=== PATIENT | female | born 1945 | race Caucasian/White ===

== ENCOUNTER 2019-01-12 09:47 | Inpatient (IN) | payer MEDICARE, BC ==
[~2019-01-12] VITALS: Ht 162.6 cm; Wt 59.6 kg
[~2019-01-12 09:47] MED LIST: ADLT ASA LOW81 MG PO; ALLOPURINOL100 MG PO; AUGMENTIN500TAB PO; BENICAR40 MG PO; CALCIUM + D600 MG OR; CARTIA XT120 MG/24 PO; CLOBETASOL0.053 EX; CRESTOR10 MG PO; DEPO-MEDROL80 MG/ML IM; FISH OIL1000 MG PO; HYDROCO/APAP1 T12 OR; KEFLEX500 MG PO; LASIX 20 MG TAB20 MG PO; LOMOTIL2.5 MG PO; LUNESTA2 MG OR; MAG OXIDE400 MG PO; MELATONIN10 MG PO; MULTIVITAM10 OR; OMEPRAZOLE20 MG PO; PATADAY OP; PREVNAR 13 IM; PROBIOTIC1 TAB PO; SINGULAIR PO; ZETIA10 MG PO
[2019-01-12 11:16] LABS: HEMATOCRIT 29.4 % (37.0-47.0); HEMOGLOBIN 9.9 g/dl (12.0-16.0); IMMATURE GRANULOCYTES 0.6 % (0.0-5.0); MEAN CELL VOLUME 95.8 fL CALC (80.0-100.0); MEAN CORPUSCULAR HGB 32.2 pG CALC (26.0-32.0); MEAN CORPUSCULAR HGB CONC 33.7 g/L CALC (32.0-36.0); NEUT# 11.08 thou/uL (2.00-7.15); RED BLOOD COUNT 3.07 mill/uL (4.20-5.60); RED CELL DISTRI WIDTH 13.1 % (11.5-15.5)
[2019-01-12 11:25] LABS: ACT PARTIAL THROMBO TIME 23.7 SECONDS (20.0-32.5); ALBUMIN 4.4 g/dL (3.2-5.0); BILIRUBIN, TOTAL 0.4 mg/dL (0.0-1.4); CREATININE 1.6 mg/dL (0.5-1.0); INTERNATIONAL NORMALIZED RATIO 0.9 RATIO (0.7-1.3); POTASSIUM 4.9 mmol/l (3.5-5.1); PROTHROMBIN TIME 9.3 SECONDS (9.0-12.5); TOTAL PROTEIN 7.4 g/dL (6.3-8.2)
[2019-01-12] MEDS ORDERED: CARTIA XT300 MG PO (12:12)
[2019-01-12] MEDS ORDERED: HYDROCHLOROT12.5 M1 PO (12:20)
[2019-01-12] MEDS ORDERED: LOSARTAN POTASS50 MG PO (12:22)
[2019-01-12] MEDS ORDERED: BYSTOLIC10 MG PO (12:22)
[2019-01-12 13:59] VITALS: BP 210/71
[2019-01-12 14:31] VITALS: BP 189/91
[2019-01-12 15:23] VITALS: BP 179/66
[2019-01-12 15:51] LABS: URINE BILIRUBIN - DIPSTICK NEGATIVE (NEGATIVE); URINE BLOOD DIPSTICK TRACE-INTACT (NEGATIVE); URINE COLOR YELLOW; URINE GLUCOSE - DIPSTICK NEGATIVE (NEGATIVE); URINE KETONE NEGATIVE (NEGATIVE); URINE LEUK ESTERASE NEGATIVE (NEGATIVE); URINE NITRITE - DIPSTICK NEGATIVE (Negative); URINE PH 6.5 (4.5-8.0); URINE PROTEIN - DIPSTICK 100 mg/dL (NEG-TRACE); URINE UROBILINOGEN - DIPSTICK 0.2 E.U./dL (0.2)
[2019-01-12 15:59] LABS: URINE SQUAMOUS EPITHELIAL CELL FEW EPI/hpf (0-FEW)
[2019-01-12 16:24] LABS: MAGNESIUM 1.9 mg/dL (1.6-2.3)
[2019-01-12] MEDS ORDERED: TYLENOL PM PO (16:28)
[2019-01-12] MEDS ORDERED: IBANDRONATE SO150 MG PO (16:29)
[2019-01-12 16:50] VITALS: BP 188/72
[2019-01-12 20:43] LABS: CREATININE 1.2 mg/dL (0.5-1.0); POTASSIUM 4.5 mmol/l (3.5-5.1)
[2019-01-12 22:19] VITALS: BP 197/72
[2019-01-12 23:45] VITALS: BP 159/77
[2019-01-13] VITALS (7 sets, daily range): BP systolic 148–183; BP diastolic 60–77
[2019-01-13 05:54] LABS: HEMATOCRIT 28.1 % (37.0-47.0); HEMOGLOBIN 9.3 g/dl (12.0-16.0); IMMATURE GRANULOCYTES 0.5 % (0.0-5.0); MEAN CELL VOLUME 98.9 fL CALC (80.0-100.0); MEAN CORPUSCULAR HGB 32.7 pG CALC (26.0-32.0); MEAN CORPUSCULAR HGB CONC 33.1 g/L CALC (32.0-36.0); NEUT# 6.49 thou/uL (2.00-7.15); RED BLOOD COUNT 2.84 mill/uL (4.20-5.60); RED CELL DISTRI WIDTH 13.4 % (11.5-15.5)
[2019-01-13 06:17] LABS: CREATININE 1.2 mg/dL (0.5-1.0); POTASSIUM 4.9 mmol/l (3.5-5.1)
[2019-01-14 00:10] VITALS: BP 145/68
[2019-01-14 04:40] VITALS: BP 142/74
[2019-01-14 05:52] LABS: MEAN CELL VOLUME 99.2 fL CALC (80.0-100.0); MEAN CORPUSCULAR HGB 33.1 pG CALC (26.0-32.0); MEAN CORPUSCULAR HGB CONC 33.3 g/L CALC (32.0-36.0); RED BLOOD COUNT 2.42 mill/uL (4.20-5.60); RED CELL DISTRI WIDTH 13.8 % (11.5-15.5)
[2019-01-14 06:19] LABS: BILIRUBIN, TOTAL 0.3 mg/dL (0.0-1.4); CREATININE 1.4 mg/dL (0.5-1.0); POTASSIUM 4.3 mmol/l (3.5-5.1)
[2019-01-14 06:26] LABS: ALBUMIN 2.9 g/dL (3.2-5.0); TOTAL PROTEIN 5.4 g/dL (6.3-8.2)
[2019-01-14 07:44] VITALS: BP 161/60
[2019-01-14 11:15] VITALS: BP 171/84
[2019-01-14 12:20] VITALS: BP 156/61
[2019-01-14 15:56] VITALS: BP 148/75
[2019-01-14] MEDS ORDERED: B121000 MCG PO (16:32)
[2019-01-14] MEDS ORDERED: FOLIC ACID1 M1 PO (16:32)
== END 2019-01-14 17:43 | disposition home health service (06) | DRG 641 ==
LOC: ED 09:47 → ED-I 11:30 → ED 12:00 → MS2 12:01
PROVIDERS: Nurse Practitioner Family; ADMIT Internal Medicine; ATTEND Internal Medicine
DX: E87.1 Hypo-osmolality and hyponatremia (principal); S42.292A Other displaced fracture of upper end of left humerus, initial encounter for closed fracture; N18.4 Chronic kidney disease, stage 4 (severe); W01.198A Fall on same level from slipping, tripping and stumbling with subsequent striking against other object, initial encounter; Y92.008 Other place in unspecified non-institutional (private) residence as the place of occurrence of the external cause; I12.9 Hypertensive chronic kidney disease with stage 1 through stage 4 chronic kidney disease, or unspecified chronic kidney disease; D63.1 Anemia in chronic kidney disease; G62.1 Alcoholic polyneuropathy; E78.5 Hyperlipidemia, unspecified; I16.0 Hypertensive urgency; S09.90XA Unspecified injury of head, initial encounter

== ENCOUNTER 2019-05-18 | Day surgery (SDC) | payer MEDICARE, BC ==
[~2019-05-18] MED LIST changes: +ALOSETRON PO; +APRESOLINE25 MG/TAB PO; +B121000 MCG PO; +BONIVA150 M1 PO; +BYSTOLIC10 MG PO; +CARTIA XT300 MG PO; +FOLIC ACID1 M1 PO; +FOLIC ACID1 MG PO; +HYDROCHLOROT12.5 M1 PO; +IBANDRONATE SO150 MG PO; +LOSARTAN POTASS50 MG PO; +MAGNESIUM OXID400 M3; +TYLENOL PM PO
[2019-05-18] MEDS ORDERED: MELATONI1 XX (08:28)
[2019-05-18] MEDS ORDERED: TYLENOL PM PO (08:29)
[2019-05-18] MEDS ORDERED: GINGER ROOT (08:30)
[2019-05-18 09:25] LABS: HEMATOCRIT 33.3 % (37.0-47.0); HEMOGLOBIN 10.6 g/dl (12.0-16.0); IMMATURE GRANULOCYTES 0.5 % (0.0-5.0); MEAN CELL VOLUME 98.8 fL CALC (80.0-100.0); MEAN CORPUSCULAR HGB 31.5 pG CALC (26.0-32.0); MEAN CORPUSCULAR HGB CONC 31.8 g/L CALC (32.0-36.0); NEUT# 4.46 thou/uL (2.00-7.15); RED BLOOD COUNT 3.37 mill/uL (4.20-5.60); RED CELL DISTRI WIDTH 14.5 % (11.5-15.5)
[2019-05-18 09:46] LABS: ALBUMIN 3.1 g/dL (3.2-5.0); BILIRUBIN, TOTAL 0.2 mg/dL (0.0-1.4); CREATININE 1.6 mg/dL (0.5-1.0); POTASSIUM 4.2 mmol/l (3.5-5.1); TOTAL PROTEIN 5.6 g/dL (6.3-8.2)
[2019-05-18] MEDS ORDERED: PROTONIX20 M1 PO (10:52)
--- NOTE | 2019-05-30 13:35 | NUR ---
PER DR SHEA THE PATHOLOGY REPORT WAS BENIGN. I ADVISED PATIENT THE SAME. I EXPAINED TO HER TO STAY ON HER MEDICATION FOR 3 MONTHS AND THEN STOP THEM TO SEE HOW SHE FEELS. ALSO ADVISED TO REPEAT COLONOSCOPY IN 5 YEARS. SENT COPY OF NOTES TO DR SNOW.
== END 2019-05-18 11:30 | disposition home or self-care (01) ==
PROVIDERS: Surgery
PROC: 0DBL8ZX Excision of Transverse Colon, Via Natural or Artificial Opening Endoscopic, Diagnostic (ICD-10-PCS; principal; 2019-05-18)
PROC: 0DB98ZX Excision of Duodenum, Via Natural or Artificial Opening Endoscopic, Diagnostic (ICD-10-PCS; 2019-05-18)
DX: D12.3 Benign neoplasm of transverse colon (principal); K57.30 Diverticulosis of large intestine without perforation or abscess without bleeding; K26.9 Duodenal ulcer, unspecified as acute or chronic, without hemorrhage or perforation; K44.9 Diaphragmatic hernia without obstruction or gangrene; I12.9 Hypertensive chronic kidney disease with stage 1 through stage 4 chronic kidney disease, or unspecified chronic kidney disease; N18.4 Chronic kidney disease, stage 4 (severe); Z86.010 Personal history of colon polyps

== ENCOUNTER 2020-09-16 07:45 | Day surgery (SDC) | payer MEDICARE, BC ==
[~2020-09-16] VITALS: Ht 162.6 cm; Wt 56.2 kg
[~2020-09-16 07:45] MED LIST changes: +D32000 UNI1 PO; +GINGER ROOT; -MAGNESIUM OXID400 M3; +MAGNESIUM OXID400 M3 PO; +MELATONI1 PO; +PROTONIX20 M1 PO; +PROTONIX20 MG PO; +[UNRECOGNIZED DRUG - OTHER] PO
[2020-09-16] MEDS ORDERED: PERCOCET 5/325M1 TAB PO (10:02)
[2020-09-16 10:49] VITALS: BP 185/84
[2020-10-27] MEDS ORDERED: DIPHENOXYLATE/A1 TA1 PO (23:45)
== END 2020-09-16 11:10 | disposition home or self-care (01) ==
LOC: ORM 07:45
PROVIDERS: ATTEND Surgery
PROC: 06BY3ZC Excision of Hemorrhoidal Plexus, Percutaneous Approach (ICD-10-PCS; principal; 2020-09-16)
PROC: 0DBQXZX Excision of Anus, External Approach, Diagnostic (ICD-10-PCS; 2020-09-16)
DX: K64.8 Other hemorrhoids (principal); C21.0 Malignant neoplasm of anus, unspecified; I12.9 Hypertensive chronic kidney disease with stage 1 through stage 4 chronic kidney disease, or unspecified chronic kidney disease; N18.4 Chronic kidney disease, stage 4 (severe)
CPT/HCPCS: C9290

== ENCOUNTER 2020-10-01 06:18 | Day surgery (SDC) | payer MEDICARE, BC ==
[~2020-10-01 06:18] MED LIST changes: +PERCOCET 5/325M1 TAB PO
[2020-10-01] MEDS ORDERED: PERCOCET 5/325M1 TAB PO (08:17)
[2020-10-01 09:02] VITALS: BP 174/78
[2020-10-27] MEDS ORDERED: DIPHENOXYLATE/A1 TA1 PO (23:45)
== END 2020-10-01 09:23 | disposition home or self-care (01) ==
LOC: ORM 06:18
PROVIDERS: ATTEND Surgery
PROC: 0JH63WZ Insertion of Totally Implantable Vascular Access Device into Chest Subcutaneous Tissue and Fascia, Percutaneous Approach (ICD-10-PCS; principal; 2020-10-01)
PROC: 02HV33Z Insertion of Infusion Device into Superior Vena Cava, Percutaneous Approach (ICD-10-PCS; 2020-10-01)
PROC: B518ZZA Fluoroscopy of Superior Vena Cava, Guidance (ICD-10-PCS; 2020-10-01)
DX: C21.0 Malignant neoplasm of anus, unspecified (principal); I10 Essential (primary) hypertension

== ENCOUNTER 2020-10-28 11:31 | Inpatient (IN) | payer MEDICARE, BC ==
[~2020-10-28] VITALS: Ht 162.6 cm; Wt 60.0 kg
[~2020-10-28 11:31] MED LIST changes: +DIPHENOXYLATE/A1 TA1 PO
--- NOTE | 2020-10-28 11:58 | NUR ---
PT AMBULATED TO RM 8 WITH STEADY GAIT FOR B/S TRIAGE. FAMILY AT B/S.
--- NOTE | 2020-10-28 13:55 | NUR ---
SON REMAINE BEDSIDE WITH HIS MOTHER, BOTH DENIE ANY NEEDS CURRENTLY
[2020-10-28 14:03] LABS: ALBUMIN 3.4 g/dL (3.2-5.0); CREATININE 2.2 mg/dL (0.5-1.0); TOTAL PROTEIN 6.1 g/dL (6.3-8.2)
[2020-10-28 14:04] LABS: BILIRUBIN, TOTAL 0.3 mg/dL (0.0-1.4)
[2020-10-28 14:11] LABS: URINE BILIRUBIN - DIPSTICK NEGATIVE (NEGATIVE); URINE BLOOD DIPSTICK TRACE-INTACT (NEGATIVE); URINE COLOR YELLOW; URINE GLUCOSE - DIPSTICK NEGATIVE (NEGATIVE); URINE KETONE NEGATIVE (NEGATIVE); URINE LEUK ESTERASE NEGATIVE (NEGATIVE); URINE PROTEIN - DIPSTICK 100 mg/dL (NEG-TRACE); URINE UROBILINOGEN - DIPSTICK 0.2 E.U./dL (0.2)
[2020-10-28 14:13] LABS: URINE EPITHELIAL CELLS FEW EPI/hpf (0-FEW); URINE MUCUS FEW hpf (NONE-FEW); URINE NITRITE - DIPSTICK NEGATIVE (Negative)
[2020-10-28 14:26] LABS: HEMATOCRIT 21.5 % (37.0-47.0); MEAN CELL VOLUME 100.5 fL CALC (80.0-100.0); MEAN CORPUSCULAR HGB 32.7 pG CALC (26.0-32.0); MEAN CORPUSCULAR HGB CONC 32.6 g/dL CAL (32.0-36.0); NEUT# 0.16 thou/uL (2.00-7.15); RED BLOOD COUNT 2.14 mill/uL (4.20-5.60); RED CELL DISTRI WIDTH 20.2 % (11.5-15.5)
--- NOTE | 2020-10-28 17:03 | NUR ---
REPORT TO OSCAR SPANN.
--- NOTE | 2020-10-28 17:11 | NUR ---
REPORT REC FROM Cristo AYALA RN
--- NOTE | 2020-10-28 17:26 | NUR ---
PT ARRIVED VIA WC ACCOMPANIED BY Cristo AYALA RN. PT A&O X4. NO DISTRESS NOTED. CLEAR BREATH SOUNDS UPON AUSCULTATION. ACTIVE BOWEL SOUNDS X4 QUADRANTS. 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 LAST REPORTED RADIATION 10/27/20. RUCHI CHEST PORT ACCESSED 10/28/20 BY ED STAFF, VANCOMYCIN CURRENTLY INFUSING. PT EDUCATED ON THE NEED FOR BLOOD TRANSUFSION, PT DENIES HAVING A PAST BLOOD TRANSFUSION. CONSENT TO BE OBTAINED. FRANCHISE SALES DIRECTOR IN PLACE, INITIAL READING SR 91 PER G [facility]. PT REPORTS THRUSH, PRESCRIBED THRUSH MEDICATION BROUGHT FROM HOME, APPROVAL FOR ITS USE DURING ADMISSION OBTAINED FROM Yves LIVINGSTON APRN. PORT PROTOCL FAXED TO PHARMACY. ORDER OBTAINED FOR 500 CC NS @ [facility] FOR ADMINISTRATION FOR BLOOD AND OR BLOOD PRODUCTS. ORDERS FAXED TO PHARMACY. REVERSE ISOLATION PRECAUTIONS IN PLACE FOR NEUTROPENIA, PT EDUCATED. ASSESSMENT COMPLETED. DISCUSSED POC. CALL LIGHT WITHIN REACH.
[2020-10-28 17:30] VITALS: BP 156/70
--- NOTE | 2020-10-28 17:30 | NUR ---
Admission Note Report Given to: OSCAR SPANN Transported by: Wheelchair Stretcher Transported with: X Nurse Transporter X Patent IV O2 X Hydroelectric Station Operator Location: ICU X MS2 PATIENT TO ROOM 274 VIA WHEELCHAIR IN STABLE CONDITION.
[2020-10-28] MEDS ORDERED: BYSTOLIC5 MG PO (17:37)
[2020-10-28] MEDS ORDERED: HYDRALAZINE10 MG PO (17:39)
[2020-10-28] MEDS ORDERED: CVS MELATONIN PO (17:41)
[2020-10-28 19:00] VITALS: BP 167/79
--- NOTE | 2020-10-28 19:37 | NUR ---
INFORMED CONSENT OBTAINED FOR THE ADMINISTRATION OF BLOOD AND OR BLOOD PRODUCTS.
[2020-10-28 21:00] VITALS: BP 176/73
[2020-10-28 21:40] VITALS: BP 158/75
--- NOTE | 2020-10-28 21:45 | NUR ---
PATIENT SPIKED A FEVER 101.2 JUST PRIOR TO GIVING BLOOD. DR. PHAN NOTIFIED. TRANSFUSION HELD. WILL ADDRESS IN A.M. PATIENT IS IN NO ACUTE DISTRESS. IVF REINITIATED. RESTING QUIETLY IN BED. NO COMPLAINTS.
[2020-10-29] VITALS (10 sets, daily range): BP systolic 139–181; BP diastolic 62–80
--- NOTE | 2020-10-29 01:15 | NUR ---
PATIENT RESTING IN BED. NO COMPLAINTS VERBALIZED AT THIS TIME. CONTINUES WITH DIARRHEA. PATIENT OWN MEDICATIONS IN MED ROOM AND MED REC UPDATED WITH BOWEL MED INFORMATION.
[2020-10-29 06:27] LABS: MAGNESIUM 1.9 mg/dL (1.6-2.3); POTASSIUM 4.4 mmol/l (3.5-5.1)
[2020-10-29 06:59] LABS: MEAN CORPUSCULAR HGB 32.7 pG CALC (26.0-32.0); MEAN CORPUSCULAR HGB CONC 32.3 g/dL CAL (32.0-36.0); RED BLOOD COUNT 1.96 mill/uL (4.20-5.60); RED CELL DISTRI WIDTH 20.3 % (11.5-15.5)
[2020-10-29 07:00] LABS: HEMATOCRIT 19.8 % (37.0-47.0); HEMOGLOBIN 6.4 g/dl (12.0-16.0)
--- NOTE | 2020-10-29 07:00 | NUR ---
PT REPORT RECEIVED FROM NIGHT NURSEKAILEY.
--- NOTE | 2020-10-29 07:16 | NUR ---
RECEIVED MULTIPLE CRITICAL LABS FROM .. DR. PHAN NOTIFIED. NO NEW ORDERS AT THIS TIME.
--- NOTE | 2020-10-29 08:00 | NUR ---
PT WAS FOUND RESTING IN BED IN SEMI-[place]'S POSITION;PT IS A&OX3;VS AND ASSESSMENT WERE COMPLETED;SEE SHIFT ASSESSMENT FOR DETAILS;TELE IS IN PLACE;PORT IN LEFT CHEST IS RUNNING NS@100ML/HR;PORT IS PATENT AND APPEARS FREE OF COMPLICATIONS AT THIS TIME;SAFETY PRECAUTIONS IN PLACE;CALL LIGHT WITHIN REACH;PT ENCOURAGED TO CALL WITH ANY NEEDS OR CONCERNS;WILL CONTINUE TO MONITOR.
--- NOTE | 2020-10-29 08:00 | NUR ---
PT WAS FOUND RESTING IN BED IN SEMI-[place]'S POSITION;PT IS A&OX3;VS AND ASSESSMENT WERE COMPLETED;PT IS REPORTING NO PAIN AT THIS TIME;HEART SOUNDS ARE REGULAR IN RATE AND RHYTHM;TELE IN PLACE;LUNG SOUNDS ARE CLEAR;RESPIRATIONS ARE EVEN AND UNLABORED ON RA;ABDOMEN IS SOFT WITH ACTIVE BS NOTED IN ALL QUADRANTS;SKIN INTACT;TRACE EDEMA NOTED IN LOWER LEGS BILATERALLY;LYNETTE CARRERA ON PT;PT HAS A PORT IN THE LEFT CHEST INFUSING NS@100ML/HR;SITE IS PATENT AND APPEARS FREE OF COMPLICATIONS AT THIS TIME;SAFETY PRECAUTIONS IN PLACE;PT IS CURRENTLY ON NEUTROPENIC PRECAUTIONS;CALL LIGHT WITHIN REACH;PT ENCOURAGED TO CALL WITH ANY NEEDS OR CONCERNS;BED IN LOWEST POSITION;WILL CONTINUE TO MONITOR
[2020-10-29] MEDS ORDERED: COMPAZINE10 MG PO (10:27)
[2020-10-29] MEDS ORDERED: ONDANSETRON ODT8 MG PO (10:28)
[2020-10-29] MEDS ORDERED: PRAMOXINE RE (10:33)
--- NOTE | 2020-10-29 12:00 | NUR ---
PT WAS FOUND RESTING IN BED EATING LUNCH;TELE IS IN PLACE;IV INFUSING WITHOUT DIFFICULTIES;SAFETY PRECAUTIONS IN PLACE;CALL LIGHT WITHIN REACH;WILL CONTINUE TO MONITOR.
--- NOTE | 2020-10-29 16:00 | NUR ---
PT WAS FOUND RESTING IN BED;TRANSFUSION OF PACKED RED BLOOD CELLS COMPLETED;PORT IS INFUSING ABX AND NS@100 ML/HR;SITE IS PATENT AND APPEARS FREE OF COMPLICATIONS;TELE IS IN PLACE;MEDICATIONS ARE BEING ADMINISTERED LATER DUE TO TRANSFUSION;SAFETY PRECAUTIONS IN PLACE;CALL LIGHT WITHIN REACH;WILL CONTINUE TO MONITOR.
--- NOTE | 2020-10-29 18:30 | NUR ---
CALL WAS MADE TO DIETARY FOR A MECHANICAL SOFT DIET TRAY TO BE SENT;ORDER PUT IN FOR PT
[2020-10-30] VITALS (14 sets, daily range): BP systolic 102–180; BP diastolic 53–84
--- NOTE | 2020-10-30 03:00 | NUR ---
PATIENT NEEDS PLATELETTS TRANSFUSED. VITALS TAKEN. FEVER 100.7, TYLENOL GIVEN WILL REASSESS FOR FEVER
--- NOTE | 2020-10-30 04:28 | NUR ---
PATIENT FEVER IS GOING DOWN. 99.5
[2020-10-30 06:25] LABS: CREATININE 1.7 mg/dL (0.5-1.0); MAGNESIUM 1.7 mg/dL (1.6-2.3); POTASSIUM 4.7 mmol/l (3.5-5.1)
[2020-10-30 06:57] LABS: HEMATOCRIT 20.8 % (37.0-47.0); MEAN CELL VOLUME 97.7 fL CALC (80.0-100.0); MEAN CORPUSCULAR HGB 32.9 pG CALC (26.0-32.0); MEAN CORPUSCULAR HGB CONC 33.7 g/dL CAL (32.0-36.0); RED BLOOD COUNT 2.13 mill/uL (4.20-5.60); RED CELL DISTRI WIDTH 19.9 % (11.5-15.5)
--- NOTE | 2020-10-30 07:00 | NUR ---
PT REPORT RECEIVED FROM NIGHT NURSEJERROD
--- NOTE | 2020-10-30 08:00 | NUR ---
PT WAS FOUND RESTING IN BED;PT IS A&OX3;VS AND ASSESSMENT WERE COMPLETED;HEART SOUNDS ARE REGULAR IN RATE AND RHYTHM;TELE IS IN PLACE;LUNG SOUNDS ARE CLEAR;RESPIRATIONS ARE EVEN AND UNLABORED ON RA;ABDOMEN IS SOFT WITH ACTIVE BOWEL SOUNDS IN ALL QUADRANTS;PT HAS TRACE EDEMA IN BOTH LL BILATERALLY;PT HAS A PORT THAT IS INFUSING NS@100ML/HR WITHOUT ISSUES AND PORT APPEARS FREE OF COMPLICATIONS AT THIS TIME;SAFETY PRECAUTIONS IN PLACE;CALL LIGHT WITHIN REACH;PT ENCOURAGED TO CALL WITH ANY NEEDS OR CONCERNS;BED IN LOWEST POSITION;WILL CONTINUE TO MONITOR.
--- NOTE | 2020-10-30 10:00 | NUR ---
PT WAS STARTED ON O2 THERAPY VIA NC@2L PER
--- NOTE | 2020-10-30 12:00 | NUR ---
PT WAS FOUND RESTING IN BED;PT IS STILL REPORTING MOUTH PAIN;I GAVE HER ICE CHIPS AND AN ICE PACK THAT SHE REQUESTED;WILL INFORM PHYSICIAN
--- NOTE | 2020-10-30 14:20 | NUR ---
CALL WAS MADE TO SANDY/SAWMILL WORKER;EXPRESSED PT DESIRE FOR SMOOTHIE;SANDY STATED THAT SHE WOULD SWITCH THE DIET TO FULL LIQUID AND SEE IF SHE COULD SEND UP A SMOOTHIE OR MILKSHAKE;ALSO PT REQUESTS FOR CREAM SOUP OR BROTH AND/OR HOT/COLD
--- NOTE | 2020-10-30 16:45 | NUR ---
PT IS RESTING IN BED IN SEMI-FOWLERS POSITION WHILE PACKED RBC ARE TRANSFUSING;VS ARE MONITORED AND PORT IN LEFT CHEST IS PATENT AND APPEARS FREE OF COMPLICATIONS AT THIS TIME;TELE IS IN PLACE;O2@2L VIA NC IS IN PLACE AND RESPIRATIONS ARE EVEN AND UNLABORED;SAFETY PRECAUTIONS IN PLACE;CALL LIGHT WITHIN REACH;WILL CONTINUE TO MONITOR.
--- NOTE | 2020-10-30 19:00 | NUR ---
PT ANTIBIOTICS WERE LATE TODAY DUE TO PROBLEMS WITH TRANSFUSION SCHEDULING;WILL BE GIVEN AT FIRST AVAILABLE TIME
--- NOTE | 2020-10-30 20:00 | NUR ---
PHYSICAL ASSESMENT COMPLETE. PT CURRENTLY DENIES PAIN OR DISCOMFORT. SCHEDULED MEDICATIONS AND PRN MEDICATION ADMINISTERED, SEE E-MAR. PT DENIES ANY NEEDS AT THIS TIME. PLAN OF CARE REVIEWED, PT DENIES QUESTIONS, VERBALIZES UNDERSTANDING. ITEMS WITHIN REACH, BED LOCKED IN LOW POSITION W/ BEDRAILS UP X2. CALL VAZQUEZ WITHIN REACH, AGREES TO CALL PRN.
[2020-10-31] VITALS: BP 148/63
--- NOTE | 2020-10-31 | NUR ---
PT LAYING IN BED WITH EYES CLOSED, APPEARS TO BE SLEEPING, APPEARS COMFORTABLE AND IN NO DISTRESS. RESPIRATIONS REGULAR AND UNLABORED. ITEMS REMAIN WITHIN REACH, CALL VAZQUEZ REMAINS WITHIN REACH. BED REMAINS LOCKED AND IN LOW POSITION WITH BEDRAILS UP X2. WILL CONTINUE TO MONITOR.
[2020-10-31 04:00] VITALS: BP 161/70
--- NOTE | 2020-10-31 05:48 | NUR ---
PT FOUND AWAKE FOUND WATCHING TV. C/O OF MOUTH PAIN. GIVEN ICE CHIPS AND COLD COMPRESS. WILL CONTINUE TO MONITOR.
[2020-10-31 06:08] LABS: CREATININE 1.8 mg/dL (0.5-1.0); MAGNESIUM 1.5 mg/dL (1.6-2.3); POTASSIUM 3.9 mmol/l (3.5-5.1)
[2020-10-31 06:11] LABS: HEMATOCRIT 27.5 % (37.0-47.0); MEAN CELL VOLUME 95.5 fL CALC (80.0-100.0); MEAN CORPUSCULAR HGB 31.3 pG CALC (26.0-32.0); MEAN CORPUSCULAR HGB CONC 32.7 g/dL CAL (32.0-36.0); RED BLOOD COUNT 2.88 mill/uL (4.20-5.60); RED CELL DISTRI WIDTH 19.7 % (11.5-15.5)
--- NOTE | 2020-10-31 09:18 | NUR ---
PT SITTING IN BED ATTEMPTING TO EAT BREAKFAST. A&O X4. DENIES ANY PAIN AT THIS TIME. O2 VIA NC @2L IN PLACE, CURRENTLY SUSTAINING 94-97%. CLEAR BREATH SOUNDS UPON AUSCULTATION. ACTIVE BOWEL SOUNDS X4 QUADRANTS. RU CHEST PORT HEALTHY AND PATENT IVF INFUSING PER ORDER. THRUSH TO MOUTH & TONGUE, PT REPORTS DISCOMFORT. REDNESS NOTED TO PERIRECTAL & PERNIEAL AREA DUE TO RADIATION. REVERSE ISOLATION PRECAUTIONS IN PLACE DUE TO NEUTROPENIA. NO OTHER NEEDS AT THIS TIME, REMAINS AFEBRILE. ASSESSMENT COMPLETED. DISCUSSED POC. CALL LIGHT WITHIN REACH.
--- NOTE | 2020-10-31 09:51 | NUR ---
dr graff and leslie brown aprn at bedside discussing poc
[2020-10-31 09:58] LABS: MANUAL DIFFERENTIAL YES
[2020-10-31 10:17] LABS: ANISOCYTOSIS MODERATE; BAND 10 % (0-8)
[2020-10-31 10:47] VITALS: BP 154/70
--- NOTE | 2020-10-31 12:15 | NUR ---
PT SLEEPING IN BED. NO DISTRESS NOTED. CALL LIGHT WITHIN REACH.
--- NOTE | 2020-10-31 15:00 | NUR ---
PT SITTING ON THE SIDE OF THE BED. NO DISTRESS NOTED. CALL LIGHT WITHIN REACH.
[2020-10-31 15:22] VITALS: BP 152/70
[2020-10-31 19:53] VITALS: BP 160/78
--- NOTE | 2020-10-31 20:33 | NUR ---
PHYSICAL ASSESMENT COMPLETE. PT C/O OF PAIN AND DISCOMFORT IN HER MOUTH DO TO THRUSH. SCHEDULED MEDICATIONS AND PRN MEDICATION ADMINISTERED, SEE E-MAR. PT DENIES ANY NEEDS AT THIS TIME. PLAN OF CARE REVIEWED, PT DENIES QUESTIONS, VERBALIZES UNDERSTANDING. ITEMS WITHIN REACH, BED LOCKED IN LOW POSITION W/ BEDRAILS UP X2. CALL VAZQUEZ WITHIN REACH, AGREES TO CALL PRN.
--- NOTE | 2020-10-31 22:31 | NUR ---
PTS BELONGS BAG TOPPLED TO THE FLOOR BREAK A LIQUID MEDICINE BOTTLE CONTAINING LIDO/MYKIN/PUB A. BOTTLE QUANITY IS 840. FILLED AT [facility] [place], 10-30-20
[2020-11-01] VITALS: BP 168/86
--- NOTE | 2020-11-01 03:46 | NUR ---
PT RESTING IN BED, NO SIGNS OF DISTRESS NOTED, RESP EVEN AND UNLABORED. PT VOICES NO NEEDS OR COMPLAINTS AT THIS TIME. CALL LIGHT IN REACH, CONTINUE TO MONITOR.
[2020-11-01 04:54] VITALS: BP 159/75
[2020-11-01 05:33] LABS: BILIRUBIN, TOTAL 0.2 mg/dL (0.0-1.4); CREATININE 1.7 mg/dL (0.5-1.0); TOTAL PROTEIN 5.1 g/dL (6.3-8.2)
[2020-11-01 05:41] LABS: HEMATOCRIT 26.3 % (37.0-47.0); HEMOGLOBIN 8.8 g/dl (12.0-16.0); MEAN CELL VOLUME 96.3 fL CALC (80.0-100.0); MEAN CORPUSCULAR HGB 32.2 pG CALC (26.0-32.0); MEAN CORPUSCULAR HGB CONC 33.5 g/dL CAL (32.0-36.0); RED BLOOD COUNT 2.73 mill/uL (4.20-5.60); RED CELL DISTRI WIDTH 19.8 % (11.5-15.5)
[2020-11-01 05:42] LABS: ALBUMIN 2.5 g/dL (3.2-5.0); IMMATURE GRANULOCYTES 2.8 % (0.0-5.0); NEUT# 0.05 thou/uL (2.00-7.15)
[2020-11-01 07:30] VITALS: BP 159/75
--- NOTE | 2020-11-01 07:30 | NUR ---
PATIENT LAYING IN BED AT THIS TIME. PATIENT STATES HER STATED PAIN IS "2" PATIENT HAS BEEN PREVIOUSLY MEDICATED. MASSOTHERAPIST DONE AT THIS TIME. YULIANA HAS LEFT CHEST PORT ACCESSED AT THIS TIME WITH .9NS AT 50MLS AND HOUR. PATIENT PRESENTS WITH THRUSH IN MOUTH. SIDERAILS ARE UP CALL LIGHT WITHIN REACH. O2 ON AT 2 LITERS.
[2020-11-01 10:30] VITALS: BP 149/75
--- NOTE | 2020-11-01 12:20 | NUR ---
PATIENT UP TO BATHROOM AND HAD BM X 2 SEE INTERVENTIONS. PATIENT STATED PAIN IS A 2 CURRENTLY FOR GENERALIZED PAIN. SIDERAILS ARE UP CALL LIGHT IS WITHIN REACH AT THIS TIME.
--- NOTE | 2020-11-01 13:30 | NUR ---
PATIENT GIVEN 2MG OF MORPHINE IV FOR PAIN LEVEL OF 4 AND MOUTH PAIN AT THIS ITME. SIDERAILS ARE UP X 2 CALL LIGHT WITHIN REACH.
--- NOTE | 2020-11-01 14:31 | NUR ---
S: JOSÉ MIGUEL GONZALEZ is a 74 F who presents with neutropenic fever. All medications in patient's chart were reviewed. O: W 56 kg, HT 64 in, Scr 1.7 mg/dl, CrCl 25.3 ml/min Vancomycin random level 11/01 @ 1330 < 5 mcg/ml A: Blood culture pending P: Patient is on cefepime 1g q12h Vancomycin ordered for pharmacy to dose. Change vancomycin to 1g IV Q36H. Vancomycin trough is drawn before the 4th dose on 11/06 @ 0400. Vancomycin goal trough is between 15-20 mcg/ml. Pharmacy will follow and or advise on antibiotics use as needed.
[2020-11-01 15:50] VITALS: BP 142/71
--- NOTE | 2020-11-01 15:52 | NUR ---
PATIENT RESTING IN BED AT THIS TIME. STOOL SAMPLE OBTAINED AND SENT TO LAB. PICTURE TAKE OF BUTTOCK AT THIS TIME DUE TO OPEN BLISTER ON LEFT BUTTOCKS AND SEVER REDDNESS ON BUTTOCKS. MYSTATIN APPLIED AND AQUALCELL PLACED. SIDERAILS ARE UP AT THIS TIME. PATIENT STATED HER MOUTH HURT "STILL" PATIENT WAS MEDICATED WITH ORAL MED PREVIOUSLY. PORT IS ACCESS AND CONTIUOUES IV RUNNING WITH .9 NORMAL SALINE AT 50MLS/HR. WILL CONTINUE TO MONITOR.
[2020-11-01 19:00] VITALS: BP 168/77
--- NOTE | 2020-11-01 21:00 | NUR ---
RESTING IN BED AT THIS TIME WITH O2 VIA NASAL CANNULA IN PLACE. O2 SAT IS 97% ON 2LPM. AWAKE ALERT AND ORIENTEDX3. PATIENT WITH SEVERE SORENESS AND PAIN IN HER MOUTH FROM ORAL THRUSH. PATIENT PROVIDED WITH MAGIC MOUTHWASH ORDERED FOR TOPICAL TREATMENT. PATIENT WITH LEFT UPPER CHEST PORT ACCESSED WITH IVF NS PATENT AND INFUSING ATR 50CC/HR. SITE IS HEALTHY AT THIS TIME. TELE MONITOR IN PLACE LAST READING 76 1[address] AV BLOCK. PATIENT UP TO THE BSC TO VOID YELLOW URINE AND SMALL AMT OF LOOSE BROWN STOOL. PATIENT PERINEAL AREA IS RED AND IRRITATED-AREA WAS WASHED WITH SOAP AND WATER, NYSTATIN POWDER APPLIED. AQUACEL FOAM DRESSING INTACT TO BUTTOCKS AREA. MEDICATED FOR PAIN WITH MORPHINE 2MG IVP ORDERED FOR 8/10 PAIN SCALE. NEUTROPENIC AND SAFETYPRECAUTIONS IN PLACE AND REINFORCED. CALL LIGHT IN REACH. WILL CONT TO MONITOR,
[2020-11-02] VITALS (8 sets, daily range): BP systolic 134–163; BP diastolic 62–78
--- NOTE | 2020-11-02 | NUR ---
PATIENT RESTING IN BED AT THIS TIME WITH NO COMPLAINTS AT THIS TIME. POSTIONED ON HER RIGHT SIDE WITH O2 VIA NASAL CANNULA IN PLACE. EYES ARE CLOSED AND RESP ARE EVEN AND UNLABORED. IVF PATIENT AND INFUSING VIA LEFT CHEST PORT AT 50CC/HR. TELE MONITOR IN PLACE. CALL LIGHT IN REACH. WILL CONT TO MONITOR.
[2020-11-02 05:57] LABS: CREATININE 1.7 mg/dL (0.5-1.0); POTASSIUM 4.3 mmol/l (3.5-5.1)
[2020-11-02 06:10] LABS: HEMATOCRIT 24.8 % (37.0-47.0); MEAN CELL VOLUME 97.3 fL CALC (80.0-100.0); MEAN CORPUSCULAR HGB 31.4 pG CALC (26.0-32.0); MEAN CORPUSCULAR HGB CONC 32.3 g/dL CAL (32.0-36.0); RED BLOOD COUNT 2.55 mill/uL (4.20-5.60); RED CELL DISTRI WIDTH 19.8 % (11.5-15.5)
[2020-11-02 06:11] LABS: NEUT# 0.21 thou/uL (2.00-7.15)
--- NOTE | 2020-11-02 06:45 | NUR ---
REPORT RECEIVED FROM FAIZAN MOORE. CARE ASSUMED.
--- NOTE | 2020-11-02 08:00 | NUR ---
PATIENT RESTING IN BED AWAKE. PATIENT IS ALERT AND ORIENTED X3. SHIFT ASSESSMENT COMPLETED AT THIS TIME. IV PATENT X1. CALL LIGHT IN REACH. WILL CONTINUE TO MONITOR.
--- NOTE | 2020-11-02 11:30 | NUR ---
PATIENT RESTING IN BED AT THIS TIME. AQUACEL REMOVED. BUTTOCKS EXCORIATED WITH OPEN AREAS. DR REAVES NOTIFIED. ORDERS RECEIVED TO LEAVE OPEN TO AIR.
--- NOTE | 2020-11-02 12:40 | NUR ---
DR REAVES AT BEDSIDE AT THIS TIME. PLAN OF CARE DISCUSSED.
--- NOTE | 2020-11-02 16:00 | NUR ---
PATIENT RESTING IN BED AT THIS TIME. RESP ARE EVEN AND UNLABORED. NO DISTRESS NOTED. CALL LIGHT IN REACH. WILL CONTINUE TO MONITOR.
--- NOTE | 2020-11-02 20:30 | NUR ---
PATIENT RESTING IN BED AT THIS TIME WITH O2 VIA NASAL CANNULA IN PLACE AT 2LPM O2 SAT IS 98%. PATIENT AWAKE ALERT AND ORIENTEDX3. COLOR IS PALE. SKIN IS WARM AND DRY. TELE MONITOR IN PLACE WITH LAST READING SR-70'S 1ST AVB. LEFT CHEST PORT IS ACCESSED AND SITE IS HEALTHY AT THIS TIME. PATIENT UP TO THE BSC-VOIDING YELLOW URINE. PATIENT IS HAVING SOME RECTAL BLEEDING WHEN SHE WIPES. PATIENT WITH HX OF ANAL CANCER AND CURRENTLY UNDERGOING CHEMO AND RADIACTION THERAPY. PATIENT ON NEUTROPENIC PRECAUTIONS FOR WBC-0.5 THIS MORNING. PATIENT WITH SEVERE THRUSH AND USING MAGIC MOUTHWASH AND CHLORSEPTIC FOR THAT. PATIENT ASSISTED WITH PERICARE-BARRIER CREAM APPLIED TO REDDENED BUTTOCKS. NYSTATIN POWDER APPLIED TO REDDENED PERINEAL AREA. PATIENT MEDICATED FOR PAIN -MOUTH AND PERINEAL AREA-8/10 ON PAIN SCALE WITH MORPHINE 2MG IVP. MEDICATED FOR DIARRHEA WITH LOMOTIL. SAFETY PRECAUTIONS REINFORCED. CALL LIGHT IN REACH. WILL CONT TO MONITOR.
[2020-11-03] VITALS: BP 143/72
--- NOTE | 2020-11-03 00:47 | NUR ---
PATIENT RESTING IN BED AT THIS TIME WITH O2 VIA NASAL CANNULA IN PLACE. NO COMPLAINTS AT THIS TIME. CALL LIGHT IN REACH. WILL CONT TO MONITOR.
--- NOTE | 2020-11-03 03:24 | NUR ---
PATIENT RESTING IN BED WITH O2 VIA NASAL CANNULA IN PLACE. PATIENT WITH C/O ORAL AND RECTAL PAIN-8/10 ON PAIN SCALE. MEDICATED WITH MORPHINE 2MG IVP ORDERED FOR PAIN. LAB WORK WAS DRAWN FROM LEFT UPPER CHEST PORT WITHOUT ANY DIFFICULTY-GOOD BLOOD RETURN-FLUSHED WITH NS AND HEP KARTHIKEYAN PER PROTCOL. PATIENT WAS UP TO THE BSC TO VOID AND HAD SMALL LOOSE BROWN STOOL. SAFETY PRECAUTIONS REINFORCED. CALL LIGHT IN REACH. WILL CONT TO MONITOR.
[2020-11-03 03:54] LABS: HEMATOCRIT 25.8 % (37.0-47.0); HEMOGLOBIN 8.3 g/dl (12.0-16.0); IMMATURE GRANULOCYTES 1.7 % (0.0-5.0); MEAN CELL VOLUME 98.1 fL CALC (80.0-100.0); MEAN CORPUSCULAR HGB 31.6 pG CALC (26.0-32.0); MEAN CORPUSCULAR HGB CONC 32.2 g/dL CAL (32.0-36.0); NEUT# 0.22 thou/uL (2.00-7.15); RED BLOOD COUNT 2.63 mill/uL (4.20-5.60); RED CELL DISTRI WIDTH 19.6 % (11.5-15.5)
[2020-11-03 04:17] LABS: ALBUMIN 2.6 g/dL (3.2-5.0); BILIRUBIN, TOTAL 0.2 mg/dL (0.0-1.4); CREATININE 1.7 mg/dL (0.5-1.0); POTASSIUM 5.1 mmol/l (3.5-5.1); TOTAL PROTEIN 5.4 g/dL (6.3-8.2)
--- NOTE | 2020-11-03 04:34 | NUR ---
RECIEVED CALL FROM VIKI IN LAB WITHG CRITICAL LAB [id number], PLT-78. DR REAVES AWARE OF TREND AND TREATMENT IN PROGRESS. WILL CONT TO MONITOR.
[2020-11-03 05:28] VITALS: BP 158/69
--- NOTE | 2020-11-03 07:05 | NUR ---
BEDSIDE REPORT RECIEVED, PT LYING IN BED WITH EYES CLOSED, WILL MONITOR.
[2020-11-03 10:38] VITALS: BP 138/74
--- NOTE | 2020-11-03 12:00 | NUR ---
PT LYING IN BED WITH TV ON EYES CLOSED NO COMPLAINTS AT THIS TIME WILL CONTINUE TO MONITOR
[2020-11-03 15:13] VITALS: BP 144/71
--- NOTE | 2020-11-03 15:36 | NUR ---
pt lying in bed awake, no complaint other than to sores to perirectumand buttock
--- NOTE | 2020-11-03 16:43 | NUR ---
SITZ BATH TO BE ORDERED PER DR MONAHAN
[2020-11-03 19:46] VITALS: BP 166/83
--- NOTE | 2020-11-03 20:25 | NUR ---
PATIENT RESTING IN BED AT THIS TIME WITH O2 VIA NASAL CANNULA AT 2LPM. TELE MONITOR IN PLACE. LEFT UPPER CHEST PORT ACCESSED-SITE IS HEALTHY WITH GOOD BLOOD RETURN. MEDICATED FOR MOUTH AND RECTAL/PERINEAL PAIN WITH MORPHINE 2MG IVP FOR 8/10 PAIN SCALE, MEDICATED WITH LOMOTIL FOR CONT LOOSE STOOLS. MEDICATED FOR ANXIETY WITH XANAX. PATIENT CONT TO USE BSC TO VOID AND FOR BM'S. REMAINS ON NEUTROPENIC PRECAUTIONS FOR WBC-0.6 THIS MORNING. PLT U P TO 78 TODAY. LUNGS ARE CLEAR. ABD SOFT WITH BS+. STILL WITH SLIGHT SWELLING TO LE. CONT TO USE NYSTATION POWDER TO PERINEAL AREA AND BARRIER CREAM TO BUTTOCKS. SAFETY PRECAUTIONS REINFORCED. CALL LIGHT IN REACH. WILL CONT TO MONITOR.
--- NOTE | 2020-11-03 23:00 | NUR ---
[place] [facility] [place]IST WITH PERSONEL CARE. PATIENT IS SOB WITH LITTLE TO NO EXHERSION. O2 VIA NASAL CANNULA AT 2LPM IN PLACE. ASSISTED BACK INTO BED AFTER LINENS CHANGED. BARRIER CREAM APPLIED TO BUTTOCKS AND NYSTATIN POWDER APPLIED TO PERINEAL AREA ORDERED. PATIENT POSITIONED ON SIDE WITH PILLOWS AT HER BACK. PATIENT IS STILL HAVING SEVERE PAIN IN HER MOUTH EVEN WITH USING MAGIC MOUTHWASH AND ORAL HYGEINE. MEDICATED FOR SLEEP WITH SONATA 5MG PO FOR SLEEP. SAFETY PRECAUTIONS REINFORCED. CALL LIGHT IN REACH. WILL CONT TO MONITOR.
[2020-11-04] VITALS (8 sets, daily range): BP systolic 137–178; BP diastolic 69–89
--- NOTE | 2020-11-04 02:35 | NUR ---
PATIENT CALLED FOR ASSIST. SITTING UP ON THE BSC-PATIENT HAD SMALL LOOSE BROWN STOOL AND VOIDING CLEAR YELLOW URINE. ASSISTED PATIENT WIOTH PERICARE USING PERIBOTTLE WITH WARM WATER AND THEN SOFT WIPES. ASSISTED BACK TO THE BED. BARRIER CREAM APPLIED TO BUTTOCKS. POSITIONED WITH PILLOWS ON EACH SIDE. MEDICATED FOR MOUTH AND PERINEAL PAIN WITH MORPHINE 2MG IVP VIA LEFT UPPER CHEST PORT. CALL LIGHT IN REACH. WILL CONT TO MONITOR.
--- NOTE | 2020-11-04 05:23 | NUR ---
PATIENT RESTING IN BED-LAB WORK DRAWN FROM LEFT UPPER CHEST PORT WITHOUT ANY DIFFICULTY-GOOD BLOOD RETURN-FLUSHED PER [facility] PROTOCOL. MAXIPIME HUNG ORDERED. PATIENT FINALLY APPEARS TO BE GETTING SOME REST. O2 VIA NASAL CANNULA IN PLACE AT 2LPM. TELE MONITOR INPLACE-LAST READING WAS SR-72. NEUTRAPENIC PRECAUTIONS MAINTAINED. CALL LIGHT IN REACH. WILL CONT TO MONITOR.
[2020-11-04 07:22] LABS: CREATININE 1.7 mg/dL (0.5-1.0); MAGNESIUM 1.7 mg/dL (1.6-2.3); POTASSIUM 5.1 mmol/l (3.5-5.1)
[2020-11-04 07:53] LABS: HEMATOCRIT 24.5 % (37.0-47.0); HEMOGLOBIN 7.9 g/dl (12.0-16.0); MEAN CELL VOLUME 98.8 fL CALC (80.0-100.0); MEAN CORPUSCULAR HGB 31.9 pG CALC (26.0-32.0); MEAN CORPUSCULAR HGB CONC 32.2 g/dL CAL (32.0-36.0); RED BLOOD COUNT 2.48 mill/uL (4.20-5.60); RED CELL DISTRI WIDTH 19.2 % (11.5-15.5)
--- NOTE | 2020-11-04 08:00 | NUR ---
BEDSIDE REPORT RECEIEVED. PT UP EATING BREAKFAST, HAS SOME C/O PAIN IN MOUTH/RECTAL WOUNDS. WILL MEDICATION AND WILL CONTINUE TO MONITOR.
--- NOTE | 2020-11-04 10:45 | NUR ---
WOUND CARE TO PERIRECTUM COMPLETED. PT TOLERATED WELL.
[2020-11-04 11:17] LABS: MANUAL DIFFERENTIAL YES
--- NOTE | 2020-11-04 16:27 | NUR ---
SPOKE WITH ALESSIA, NURSE AT ONCOLOGY OFFICE. THEY EXPRESSED CONCERNS WITH HER GOING TO SNF D/T INABILLITY TO RECEIVE CHEMO/RADIATION TX. SHE STATED SHE WILL FOLLOW UP TOMORROW
--- NOTE | 2020-11-04 18:42 | NUR ---
PT LYING IN BED AWAKE, PORT ACCESS CHANGED. ABX LATE DUE TO HANGING PRBCS. PT HAD NO ADVERSE REACTION TO PRBC. BEDSIDE REPORT GIVEN TO ONCOMING NURSE.
--- NOTE | 2020-11-04 20:00 | NUR ---
PATIENT RESTING IN BED AT THIS TIME-AWAKE ALERT AND ORIENTEDX3. PATIENT WITH O2 VIA NASAL CANNULA IN PLACE. TELE MONITOR IN PLACE AND LAST READING WAS SR-94 1DEGREE AVB. IVF NS PATENT AND INFUSING VIA LEFT UPPER CHEST PORT AT 50CC/HR. SITE IS HEALTHY AT THIS TIME. PATIENT WITH NON-PRODUCTIVE COUGH. PATIENT ON NEUTROPENIC PRECAUTIONS-LOW WBC'S, LOW PLT, LOW H&H. CONT TO HAVE LOOSE BROWN STOOLS. MEDICATED WITH LOTMOTIL. MEDICATED WITH XANAX FOR ANXIETY. PATIENT CONT TO USE BSC TO VOID. STILL WITH REDNESS TO BUTTOCKS-USING BARRIER CREAM. PERINEAL AREA USING NYSTATIN POWDER. EATING SMALL AMT OF SOFT FOODS. SAFETY PRECAUTIONS REINFORCED. CALL LIGHT IN REACH. WILL CONT TO MONITOR.
[2020-11-05] VITALS: BP 180/89
--- NOTE | 2020-11-05 | NUR ---
PATIENT UP AND DOWN TO THE BSC TO VOID-HAVING SMALL AMT OF LOOSE BROWN STOOLS. IVF NS PATENT AND INFUSING 50CC/HR VIA LEFT UPPER CHEST PORT. CALL LIGHT IN REACH. WILL CONT TO MONITOR.
[2020-11-05 04:00] VITALS: BP 170/92
--- NOTE | 2020-11-05 04:38 | NUR ---
PATIENT RESTING IN BED AT THIS TIME WITH EYES CLOSED RESPS ARE EVEN AND UNLABORED. O2 VIA NASAL CANNULA IN PLACE. IVF NS PATENT AND INFUSING VIA LEFT UPPER CHEST PORT AT 50CC/HR. SITE IS HEALTHY. LAB WORK DRAWN WITHOUT ANY DIFFICULTY WITH GOOD BLOOD RETURN. FLUSHED PER PROTOCOL WITH NS. MAXIPIME HUNG ORDERED. NEUTROPENIC PRECAUTIONS MAINTAINED. CALL LIGHT IN REACH. WILL CONT TO MONITOR.
--- NOTE | 2020-11-05 04:49 | NUR ---
UP AND DOWN TO THE BSC TO VOID. BACK IN BED. O2 ON. IVF PATENT AND INFUSING ORDERED LEFT UPPER CHEST PORT. CALL LIGHT IN REACH. WILL CONT TO MONITOR.
[2020-11-05 06:17] LABS: HEMATOCRIT 27.5 % (37.0-47.0); HEMOGLOBIN 9.2 g/dl (12.0-16.0); IMMATURE GRANULOCYTES 7.8 % (0.0-5.0); MEAN CELL VOLUME 96.2 fL CALC (80.0-100.0); MEAN CORPUSCULAR HGB 32.2 pG CALC (26.0-32.0); MEAN CORPUSCULAR HGB CONC 33.5 g/dL CAL (32.0-36.0); NEUT# 0.56 thou/uL (2.00-7.15); RED BLOOD COUNT 2.86 mill/uL (4.20-5.60); RED CELL DISTRI WIDTH 18.2 % (11.5-15.5)
[2020-11-05 06:23] LABS: ALBUMIN 2.4 g/dL (3.2-5.0); BILIRUBIN, TOTAL 0.2 mg/dL (0.0-1.4); CREATININE 1.7 mg/dL (0.5-1.0)
--- NOTE | 2020-11-05 06:26 | NUR ---
RECIEVED CALL FROM VIKI IN THE LAB WITH CRITICAL LABS. WBC-1.2, [PLT-31, H&H-9.2/27.5. LAB VALUES ARE IMPROVED FROM YESTERDAY. WILL CONT TO MONITOR.
[2020-11-05 06:33] LABS: POTASSIUM 5.2 mmol/l (3.5-5.1)
--- NOTE | 2020-11-05 08:15 | NUR ---
PT LYING IN BED ASLEEP, BEDSIDE REPORT RECEIVED AT CHANGE OF SHIFT. PT AWOKEN TO NURSE ASSESSMENT. PT FELL ASLEEP MIDWAY THROUGH ASSESSMENT, WILL CONTINUE TO MONITOR. NO COMPLAINTS AT THIS TIME.
[2020-11-05 08:21] VITALS: BP 166/82
--- NOTE | 2020-11-05 11:54 | NUR ---
PT SITTING UP IN BED, PT JUST COMPLETED THERAPY. PERICARE AND WOUND CARE COMPLETED
[2020-11-05 12:12] VITALS: BP 153/75
[2020-11-05] MEDS ORDERED: AMOX/K CLAV875 M1 PO (13:39)
--- NOTE | 2020-11-05 15:11 | NUR ---
Pt received on BSC. She was completing toilet hygiene and requested assistance to complete cleaning with perineal cleanser. Sasha reports d/c planning is in process and completed list with OT to ensure all belongings were together and ready to be sent to [facility].
[2020-11-05 15:53] VITALS: BP 153/75
--- NOTE | 2020-11-05 16:43 | NUR ---
DISCHARGE SIGNED, PORT DEACCESSED. PT TRANSFERRED TO [facility]
== END 2020-11-05 16:47 | DRG 809 ==
LOC: ED 11:31 → ED-I 14:04 → ED 15:17 → ED-I 15:18 → MS2 15:18
PROVIDERS: Family Medicine; Internal Medicine; Nurse Practitioner; ADMIT Internal Medicine; ATTEND Internal Medicine
PROC: 30233N1 Transfusion of Nonautologous Red Blood Cells into Peripheral Vein, Percutaneous Approach (ICD-10-PCS; principal; 2020-10-28)
PROC: 30233N1 Transfusion of Nonautologous Red Blood Cells into Peripheral Vein, Percutaneous Approach (ICD-10-PCS; 2020-10-29)
PROC: 30233R1 Transfusion of Nonautologous Platelets into Peripheral Vein, Percutaneous Approach (ICD-10-PCS; 2020-10-30)
PROC: 30233N1 Transfusion of Nonautologous Red Blood Cells into Peripheral Vein, Percutaneous Approach (ICD-10-PCS; 2020-10-30)
PROC: 30233R1 Transfusion of Nonautologous Platelets into Peripheral Vein, Percutaneous Approach (ICD-10-PCS; 2020-11-02)
PROC: 30233N1 Transfusion of Nonautologous Red Blood Cells into Peripheral Vein, Percutaneous Approach (ICD-10-PCS; 2020-11-04)
DX: D70.9 Neutropenia, unspecified (principal); C21.0 Malignant neoplasm of anus, unspecified; N18.4 Chronic kidney disease, stage 4 (severe); E87.1 Hypo-osmolality and hyponatremia; N17.9 Acute kidney failure, unspecified; B37.0 Candidal stomatitis; R50.81 Fever presenting with conditions classified elsewhere; I12.9 Hypertensive chronic kidney disease with stage 1 through stage 4 chronic kidney disease, or unspecified chronic kidney disease; E78.5 Hyperlipidemia, unspecified; E86.0 Dehydration; D64.9 Anemia, unspecified; D69.6 Thrombocytopenia, unspecified; B37.3 Candidiasis of vulva and vagina; E83.42 Hypomagnesemia; Z20.822 Contact with and (suspected) exposure to COVID-19
CPT/HCPCS: J0692; J1442; J3475; P9016; P9034; P9037

== ENCOUNTER 2021-01-12 10:26 | Observation (INO) | payer MEDICARE, BC ==
[~2021-01-12] VITALS: Ht 162.6 cm; Wt 51.4 kg
[~2021-01-12 10:26] MED LIST changes: +AMOX/K CLAV875 M1 PO; +BYSTOLIC5 MG PO; +COMPAZINE10 MG PO; +CVS MELATONIN PO; +HYDRALAZINE10 MG PO; +ONDANSETRON ODT8 MG PO; +PRAMOXINE RE
[2021-01-12 10:48] LABS: HEMOGLOBIN 8.8 g/dl (12.0-16.0); IMMATURE GRANULOCYTES 0.8 % (0.0-5.0); MEAN CELL VOLUME 96.8 fL CALC (80.0-100.0); MEAN CORPUSCULAR HGB 31.5 pG CALC (26.0-32.0); MEAN CORPUSCULAR HGB CONC 32.6 g/dL CAL (32.0-36.0); NEUT# 10.26 thou/uL (2.00-7.15); RED BLOOD COUNT 2.79 mill/uL (4.20-5.60)
[2021-01-12 11:02] LABS: ALBUMIN 3.7 g/dL (3.2-5.0)
[2021-01-12 11:21] LABS: BILIRUBIN, TOTAL 0.7 mg/dL (0.0-1.4); CREATININE 3.9 mg/dL (0.5-1.0); POTASSIUM 3.4 mmol/l (3.5-5.1)
[2021-01-12] MEDS ORDERED: LOMOTIL2.5 MG PO (15:15)
[2021-01-12] MEDS ORDERED: COMPAZINE10 MG PO (15:16)
[2021-01-12] MEDS ORDERED: BYSTOLIC5 MG PO (15:17)
[2021-01-12] MEDS ORDERED: BONIVA150 M1 PO (15:17)
[2021-01-12] MEDS ORDERED: ALLOPURINOL100 MG PO (15:17)
[2021-01-12 17:37] VITALS: BP 146/76
[2021-01-12 19:00] VITALS: BP 163/56
[2021-01-12 19:20] LABS: URINE BILIRUBIN - DIPSTICK NEGATIVE (NEGATIVE); URINE BLOOD DIPSTICK NEGATIVE (NEGATIVE); URINE CLARITY CLEAR; URINE COLOR YELLOW; URINE GLUCOSE - DIPSTICK NEGATIVE (NEGATIVE); URINE KETONE NEGATIVE (NEGATIVE); URINE LEUK ESTERASE NEGATIVE (Negative); URINE NITRITE - DIPSTICK NEGATIVE (Negative); URINE PROTEIN - DIPSTICK 100 mg/dL (NEG-TRACE); URINE UROBILINOGEN - DIPSTICK 0.2 E.U./dL (0.2)
[2021-01-12 19:45] LABS: URINE RBC 0-2 RBC/hpf (0-5); URINE SQUAMOUS EPITHELIAL CELL FEW EPI/hpf (0-FEW); URINE WBC 0-2 WBC/hpf (0-5)
[2021-01-13] VITALS: BP 144/75
[2021-01-13 04:00] VITALS: BP 125/48
[2021-01-13 05:15] LABS: HEMATOCRIT 24.2 % (37.0-47.0); MEAN CELL VOLUME 94.5 fL CALC (80.0-100.0); MEAN CORPUSCULAR HGB 31.3 pG CALC (26.0-32.0); MEAN CORPUSCULAR HGB CONC 33.1 g/dL CAL (32.0-36.0); RED BLOOD COUNT 2.56 mill/uL (4.20-5.60); RED CELL DISTRI WIDTH 18.7 % (11.5-15.5)
[2021-01-13 05:16] LABS: ALBUMIN 3.1 g/dL (3.2-5.0); BUN 48 mg/dL (8-23); CARBON DIOXIDE 12 mmol/l (22-30); CHLORIDE 107 mmol/l (95-108); GFR 15 ML/MIN (>=60 (CALC)); GFR FOR AFR.AMER. 18 ML/MIN (>=60 (CALC)); MAGNESIUM 1.4 mg/dL (1.6-2.3); SODIUM 136 mmol/l (137-146)
[2021-01-13 05:28] LABS: POTASSIUM 2.7 mmol/l (3.5-5.1)
[2021-01-13 07:33] VITALS: BP 134/67
[2021-01-13 10:40] VITALS: BP 130/80
[2021-01-13 15:33] VITALS: BP 136/54
[2021-01-13 19:00] VITALS: BP 155/62
[2021-01-14] VITALS: BP 119/47
[2021-01-14 04:00] VITALS: BP 130/49
[2021-01-14 06:37] LABS: HEMATOCRIT 22.1 % (37.0-47.0); HEMOGLOBIN 7.2 g/dl (12.0-16.0); MEAN CELL VOLUME 96.1 fL CALC (80.0-100.0); MEAN CORPUSCULAR HGB 31.3 pG CALC (26.0-32.0); MEAN CORPUSCULAR HGB CONC 32.6 g/dL CAL (32.0-36.0); RED BLOOD COUNT 2.3 mill/uL (4.20-5.60); RED CELL DISTRI WIDTH 19.3 % (11.5-15.5)
[2021-01-14 06:55] LABS: ALBUMIN 2.7 g/dL (3.2-5.0); POTASSIUM 2.9 mmol/l (3.5-5.1)
[2021-01-14 07:19] VITALS: BP 145/51
[2021-01-14 10:52] VITALS: BP 138/51
[2021-01-14 15:40] VITALS: BP 142/61
[2021-01-14 19:00] VITALS: BP 161/74
[2021-01-15] VITALS (7 sets, daily range): BP systolic 131–170; BP diastolic 57–73
[2021-01-15 04:42] LABS: MEAN CELL VOLUME 93.3 fL CALC (80.0-100.0); MEAN CORPUSCULAR HGB 31.9 pG CALC (26.0-32.0); MEAN CORPUSCULAR HGB CONC 34.2 g/dL CAL (32.0-36.0); RED BLOOD COUNT 2.1 mill/uL (4.20-5.60)
[2021-01-15 04:53] LABS: ALBUMIN 2.5 g/dL (3.2-5.0); CREATININE 1.6 mg/dL (0.5-1.0); MAGNESIUM 1.7 mg/dL (1.6-2.3)
[2021-01-15 04:54] LABS: POTASSIUM 3.5 mmol/l (3.5-5.1)
[2021-01-15 05:12] LABS: HEMATOCRIT 19.6 % (37.0-47.0); HEMOGLOBIN 6.7 g/dl (12.0-16.0)
[2021-01-15] MEDS ORDERED: ZOFRAN4 MG/TAB PO (11:23)
[2021-01-15] MEDS ORDERED: FIRVANQ25 MG/ML PO (11:26)
[2021-01-15] MEDS ORDERED: FLORASTOR250 M1 PO (12:21)
== END 2021-01-15 14:45 | disposition home health service (06) ==
LOC: ED 10:26 → ED-I 12:35 → ED 15:05 → MS2 15:06
PROVIDERS: Emergency Medicine; Internal Medicine Nephrology; Nurse Practitioner; ADMIT Hospitalist; ATTEND Hospitalist
PROC: 30233N1 Transfusion of Nonautologous Red Blood Cells into Peripheral Vein, Percutaneous Approach (ICD-10-PCS; principal; 2021-01-15)
DX: A04.72 Enterocolitis due to Clostridium difficile, not specified as recurrent (principal); N17.9 Acute kidney failure, unspecified; I12.9 Hypertensive chronic kidney disease with stage 1 through stage 4 chronic kidney disease, or unspecified chronic kidney disease; N18.30 Chronic kidney disease, stage 3 unspecified; C20 Malignant neoplasm of rectum; E86.0 Dehydration; E86.9 Volume depletion, unspecified; E83.42 Hypomagnesemia; E87.1 Hypo-osmolality and hyponatremia; E87.2 Acidosis; E87.6 Hypokalemia; D63.1 Anemia in chronic kidney disease; E78.5 Hyperlipidemia, unspecified; Z79.899 Other long term (current) drug therapy; Z20.822 Contact with and (suspected) exposure to COVID-19; Z95.828 Presence of other vascular implants and grafts
CPT/HCPCS: G0378; J3475; P9016

== ENCOUNTER 2021-04-09 07:35 | Day surgery (SDC) | payer MEDICARE, BC ==
[~2021-04-09 07:35] MED LIST changes: +D32000 UNIT PO; +FIRVANQ25 MG/ML PO; +FLORASTOR250 M1 PO; +MONTELUKAST SOD10 MG PO; +ONDANSETRON4 MG PO; +TYLENOL500 MG PO; +ZOFRAN4 MG/TAB PO
[2021-04-09 08:11] LABS: HEMATOCRIT 23.2 % (37.0-47.0); MEAN CELL VOLUME 91.3 fL CALC (80.0-100.0); MEAN CORPUSCULAR HGB 29.5 pG CALC (26.0-32.0); MEAN CORPUSCULAR HGB CONC 32.3 g/dL CAL (32.0-36.0); NEUT# 1.33 thou/uL (2.00-7.15); RED BLOOD COUNT 2.54 mill/uL (4.20-5.60); RED CELL DISTRI WIDTH 18.6 % (11.5-15.5)
[2021-04-09 08:16] LABS: HEMOGLOBIN 7.5 g/dl (12.0-16.0)
[2021-04-09 08:25] LABS: PROTHROMBIN TIME 10.2 SECONDS (9.0-12.5)
[2021-04-09 08:43] LABS: ALBUMIN 3.7 g/dL (3.2-5.0); BILIRUBIN, TOTAL 0.7 mg/dL (0.0-1.4); CREATININE 2.4 mg/dL (0.5-1.0); POTASSIUM 4.1 mmol/l (3.5-5.1); TOTAL PROTEIN 6.8 g/dL (6.3-8.2)
[2021-04-09] MEDS ORDERED: TRAMADOL HCL50 MG PO (10:02)
[2021-04-09 11:24] VITALS: BP 147/68
[2021-04-15] MEDS ORDERED: LASIX (10:19)
[2021-04-15] MEDS ORDERED: DIFLUCAN100 MG PO (10:40)
[2021-04-15] MEDS ORDERED: BACTRIM DS1 TAB PO (10:40)
== END 2021-04-09 11:25 | disposition home or self-care (01) ==
LOC: ORM 07:35
PROVIDERS: Nurse Anesthetist, Certified Registered; ATTEND Surgery
PROC: 06BY3ZC Excision of Hemorrhoidal Plexus, Percutaneous Approach (ICD-10-PCS; principal; 2021-04-09)
PROC: 0DJD8ZZ Inspection of Lower Intestinal Tract, Via Natural or Artificial Opening Endoscopic (ICD-10-PCS; 2021-04-09)
PROC: 0DB98ZX Excision of Duodenum, Via Natural or Artificial Opening Endoscopic, Diagnostic (ICD-10-PCS; 2021-04-09)
PROC: 0DB78ZX Excision of Stomach, Pylorus, Via Natural or Artificial Opening Endoscopic, Diagnostic (ICD-10-PCS; 2021-04-09)
DX: K64.8 Other hemorrhoids (principal); D64.9 Anemia, unspecified; K44.9 Diaphragmatic hernia without obstruction or gangrene; I12.9 Hypertensive chronic kidney disease with stage 1 through stage 4 chronic kidney disease, or unspecified chronic kidney disease; N18.4 Chronic kidney disease, stage 4 (severe); K21.9 Gastro-esophageal reflux disease without esophagitis; Z85.048 Personal history of other malignant neoplasm of rectum, rectosigmoid junction, and anus; Z87.11 Personal history of peptic ulcer disease
CPT/HCPCS: C9290

== ENCOUNTER 2021-04-26 09:32 | Inpatient (IN) | payer MEDICARE, BC ==
[~2021-04-26] VITALS: Ht 162.6 cm; Wt 48.7 kg
[~2021-04-26 09:32] MED LIST changes: +BACTRIM DS1 TAB PO; +CARTIA XT180 MG PO; -CARTIA XT300 MG PO; +DIFLUCAN100 MG PO; +LASIX 40 MG TAB40 MG PO; -MULTIVITAM10 OR; +MULTIVITAMIN WO1 TAB PO; +TRAMADOL HCL50 MG PO
[2021-04-26 10:58] LABS: HEMATOCRIT 24.9 % (37.0-47.0); IMMATURE GRANULOCYTES 4.9 % (0.0-5.0); MEAN CELL VOLUME 92.9 fL CALC (80.0-100.0); MEAN CORPUSCULAR HGB 29.9 pG CALC (26.0-32.0); MEAN CORPUSCULAR HGB CONC 32.1 g/dL CAL (32.0-36.0); NEUT# 1.4 thou/uL (2.00-7.15); RED BLOOD COUNT 2.68 mill/uL (4.20-5.60); RED CELL DISTRI WIDTH 17.1 % (11.5-15.5)
[2021-04-26 11:24] LABS: ALBUMIN 3.3 g/dL (3.2-5.0); CREATININE 3.3 mg/dL (0.5-1.0); POTASSIUM 4.7 mmol/l (3.5-5.1); TOTAL PROTEIN 6.7 g/dL (6.3-8.2)
[2021-04-26] MEDS ORDERED: BONIVA150 M1 PO (11:25)
[2021-04-26 11:32] LABS: BILIRUBIN, TOTAL 0.2 mg/dL (0.0-1.4)
[2021-04-26 14:05] LABS: URINE BILIRUBIN - DIPSTICK NEGATIVE (NEGATIVE); URINE BLOOD DIPSTICK MODERATE (NEGATIVE); URINE CLARITY SL CLOUDY; URINE COLOR YELLOW; URINE GLUCOSE - DIPSTICK NEGATIVE (NEGATIVE); URINE KETONE NEGATIVE (NEGATIVE); URINE LEUK ESTERASE NEGATIVE (Negative); URINE NITRITE - DIPSTICK NEGATIVE (Negative); URINE PH 6.5 (4.5-8.0); URINE PROTEIN - DIPSTICK 30 mg/dL (NEG-TRACE); URINE UROBILINOGEN - DIPSTICK 0.2 E.U./dL (0.2)
[2021-04-26 14:06] LABS: URINE EPITHELIAL CELLS MODERATE EPI/hpf (0-FEW)
[2021-04-27] VITALS (18 sets, daily range): BP systolic 110–180; BP diastolic 50–81
--- NOTE | 2021-04-27 01:22 | NUR ---
REPORT CALLED TO YAMILET
--- NOTE | 2021-04-27 01:43 | NUR ---
PT ARRIVED TO MED/SUG FLOOR; GOT REPORT FROM ER NURSE. PT IN BED, A&0 X3. EVEN AND UNLABORED RESPIRATIONS; CLEAR LUNG SOUNDS UPON AUSCULTATION. TELEMETRY IN PLACE. ACTIVE BOWEL SOUNDS X4 QUADRANTS. BILATERAL EDEMA +2 ON LOWER EXTREMITIES. SCATTERED BRUISING ON BILATERAL EXTREMITIES NOTED. CALL LIGHT WITHIN REACH.
[2021-04-27 05:37] LABS: HEMATOCRIT 22.9 % (37.0-47.0); HEMOGLOBIN 7.3 g/dl (12.0-16.0); MEAN CELL VOLUME 93.5 fL CALC (80.0-100.0); MEAN CORPUSCULAR HGB 29.8 pG CALC (26.0-32.0); MEAN CORPUSCULAR HGB CONC 31.9 g/dL CAL (32.0-36.0); RED BLOOD COUNT 2.45 mill/uL (4.20-5.60); RED CELL DISTRI WIDTH 17.1 % (11.5-15.5)
[2021-04-27 06:20] LABS: CREATININE 2.7 mg/dL (0.5-1.0); POTASSIUM 4.3 mmol/l (3.5-5.1)
[2021-04-27 06:22] LABS: MAGNESIUM 2.2 mg/dL (1.6-2.3)
--- NOTE | 2021-04-27 08:23 | NUR ---
PT AWAKE LAYING SUPINE UPON ENTERING ROOM. PT A&OX3, ASSESSMENT AND VITALS ALLOWED AT THIS TIME. PT AWARE OF ANOSCOPY PROCEDURE THIS MORNING BY DR. COTE. STATED TO PT ABOUT HGB BEING 7.3. REPORTED TO DR. MILLER ABOUT HGB 7.3 ORDERS TO GET 1 UNIT OF BLOOD THIS MORNING. NOTIFIED OR ABOUT BLOOD. PT HAS LEFT SUBCLAVIAN PORT. FLUSHED WITH NO RESISTANCE. TELE MONITOR IN PLACE.CONTINOUS MONITORING PER ED. FALL/SAFTEY PRECAUTION IN PLACE. CALL LIGHT WITHIN REACH.
--- NOTE | 2021-04-27 09:54 | NUR ---
PT LEFT VIA STRETCHER WITH OSCAR CARNEY AND OSCAR RIVERA TO OR FOR OR PROCEDURE.
--- NOTE | 2021-04-27 13:17 | NUR ---
PLATLETE INFUSION STARTED AT THIS TIME. EDUCATED PT ON S&S OF ADVERSE REACTIONS. PT INDICATES UNDERSTANDING.
--- NOTE | 2021-04-27 13:40 | NUR ---
PT FINISHED BAG #1 OF PLATLETS. PT TOLERATED WELL. REPORTS NO PAIN. TEMP: 98.4 BP: 147/51 HR: 65 SPO2: 96 RR:16 FALL/SAFTEY PRECAUTION IN PLACE. CALL LIGHT WITHIN REACH
--- NOTE | 2021-04-27 14:22 | NUR ---
PT FINISHED BAG #2 OF PLATELETS. PT TOLERATED WELL. DENIES HEADAHCE/NAUSEA/PAIN. LAST VS: TEMP: 97.0 HR: 66 RR:16 BP:128/50 SPO2:95 FALL/SAFTEY PERCAUTIONS IN PLACE. CALL LIGHT WITHIN REACH. TELE MONITOR IN PLACE.
--- NOTE | 2021-04-27 15:36 | NUR ---
PT RESTING WITH EYES CLOSED. BREATHING IS EVEN AND UNLABORED. LEFT SUBLAVIAN PORT IS PATENT. AWAITING PACKED RBC. NO DISTRESS NOTED. FALL/SAFTEY PRECAUTION WITHIN REACH. CALL LIGHT WITHIN REACH. TELE MONITOR IN PLACE.
--- NOTE | 2021-04-27 16:38 | NUR ---
PT BEGINS PACKED RBCS AT THIS TIME. EDUCATED OF ADVERSE REACTIONS OF TRANSFUSION. PT INDICATES UNDERSTANDING. TELE MONITOR IN PLACE. PT STATES NO N/V. STATES PAIN " A 2" FALL/SAFETY PRECAUTION IN PLACE. CALL LIGHT WITHIN REACH.
--- NOTE | 2021-04-27 17:38 | NUR ---
15 MINUTES NO SIGN OF ADVERSE REACTION WITH RBC. PT STATES PAIN STILL A 2. TEMP: 97.5 HR: 65 BP: 147/65 SPO2: 95 FALL/SAFETY PRECAUTION WITHIN PLACE. CALL LIGHT WITHIN REACH. TELE MONITOR IN PLACE.
--- NOTE | 2021-04-27 19:30 | NUR ---
PATIENT SITTING UP IN BED. ALERT AND ORIENTED. APPEARS SHORT OF BREATH AT TIMES. PATIENT VOICED, ''I GET SHORT OF BREATH AFTER WALKING TO THE BATHROOM''. BED REMAINS IN LOW POSITION. CALL LIGHT AND BELONGINGS REMAIN IN REACH.
--- NOTE | 2021-04-27 21:25 | NUR ---
CALL OUT AND SPOKE WITH DIABETES TRAINER PROVIDER ON PATIENTS STATUS DO TO PATIENT FEELING ANXIOUS AND FEELING SOB. NEW ORDERS RECEIVED, SEE EMAR.
--- NOTE | 2021-04-27 23:30 | NUR ---
SPOKE WITH TOOL ADJUSTER PROVIDER AGAIN ON PATIENTS STATUS. SEE NEW ORDERS IN EMAR. ALSO STAT CXR ORDERED WELL. RESPIRATORY THERAPY WAS ALSO IN ROOM TO SEE PATIENT.
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
[2021-04-28 04:00] VITALS: BP 170/82
--- NOTE | 2021-04-28 04:25 | NUR ---
PATIENT LAYING IN BED. NO DISTRESS NOTED. AMBUL[place] [facility] WITH FARM MANAGEMENT PROFESSOR. SOB REMAINS ON EXERTION WHEN AMBULATING. OXYGEN REMAINS ON VIA NC AT 2L. CALL LIGHT AND BELONGINGS REMAIN IN REACH.
[2021-04-28 05:07] VITALS: BP 159/59
[2021-04-28 06:09] LABS: MEAN CELL VOLUME 90.9 fL CALC (80.0-100.0); MEAN CORPUSCULAR HGB 29.8 pG CALC (26.0-32.0); MEAN CORPUSCULAR HGB CONC 32.8 g/dL CAL (32.0-36.0); RED BLOOD COUNT 3.29 mill/uL (4.20-5.60); RED CELL DISTRI WIDTH 18.1 % (11.5-15.5)
[2021-04-28 06:17] LABS: CREATININE 2.1 mg/dL (0.5-1.0); HEMATOCRIT 29.9 % (37.0-47.0); HEMOGLOBIN 9.8 g/dl (12.0-16.0); MAGNESIUM 1.9 mg/dL (1.6-2.3); POTASSIUM 4.1 mmol/l (3.5-5.1)
--- NOTE | 2021-04-28 06:45 | NUR ---
REPORT RECEIVED FROM TATUM MOORE. CARE ASSUMED.
--- NOTE | 2021-04-28 07:45 | NUR ---
PATIENT RESTING IN BED AWAKE. PATIENT IS ALERT AND ORIENTED X3. SHIFT ASSESSMENT COMPLETED AT THIS TIME. IV PATENTX1. CALL LIGHT IN REACH. WILL CONTINUE TO MONITOR
[2021-04-28 08:00] VITALS: BP 147/62
[2021-04-28 11:00] VITALS: BP 162/67
--- NOTE | 2021-04-28 11:45 | NUR ---
6 MINUTE WALK TEST COMPLETED AT THIS TIME. PATIENT 97%
--- NOTE | 2021-04-28 14:00 | NUR ---
PATIENT WITH COMPLAINTS OF SHORTNESS OF BREATH. O2 SATS 88%. PLACED PATIENT ON O2 3L. HAYES PLACED. XANAX GIVEN PO. D MIKI ZEPEDA NOTIFIED. CALL LIGHT IN REACH. WILL CONTINUE TO MONITOR.
--- NOTE | 2021-04-28 14:30 | NUR ---
PATIENT TO RADIOLOGY AT THIS TIME.
--- NOTE | 2021-04-28 14:50 | NUR ---
PATIENT RETURNED FROM RADIOLOGY AT THIS TIME.
[2021-04-28 15:25] VITALS: BP 174/79
[2021-04-28] MEDS ORDERED: GINGER ROOT250 MG PO (15:57)
[2021-04-28] MEDS ORDERED: CYANOCOBAL1000 MCG/M IM (15:58)
[2021-04-28] MEDS ORDERED: TRAMADOL HYDROC50 M1 PO (15:59)
--- NOTE | 2021-04-28 16:00 | NUR ---
PATIENT RESTING IN BED AWAKE. RESP ARE EVEN AND UNLABORED. NO DISTRESS NOTED. CALL LIGHT IN REACH. WILL CONTINUE TO MONITOR.
[2021-04-28 19:00] VITALS: BP 153/71
--- NOTE | 2021-04-28 19:29 | NUR ---
PATIENT SITTING UP IN BED RESTING. ALERT AND ORIENTED. ABLE TO MAKE NEEDS KNOWN. NO SHORTNESS OF BREATH NOTED AT THIS TIME. COMPLAINTS OF PAIN. WILL MEDICATE PER EMAR ORDERS. ASSESSMENT COMPLETE. OXYGEN REMAINS ON VIA NC AT 3L. PATIENT REMAINS SHORT OF BREATH WHEN HAVING TO AMBULATE TO [facility]. CALL LIGHT AND BELONGINGS REMAIN IN PATIENT REACH.
[2021-04-29] VITALS (13 sets, daily range): BP systolic 134–181; BP diastolic 49–81
--- NOTE | 2021-04-29 00:56 | NUR ---
IV ABT HUNG PER DR ORDER. NO COMPLAINTS VOICED FROM PATIENT. NO SHORTNESS OF BREATH OBSERVED. CALL LIGHT AND BELONGINGS REMAIN IN REACH.
--- NOTE | 2021-04-29 04:00 | NUR ---
RESTING IN BED. NO SHORTNESS OF BREATH. NO COMPLAINTS OF PAIN. HAYES PATENT, CONTINUES TO DRAIN CLEAR, YELLOW URINE. CALL LIGHT AND BELONGINGS REMAIN IN REACH.
[2021-04-29 05:39] LABS: HEMATOCRIT 26.4 % (37.0-47.0); HEMOGLOBIN 8.5 g/dl (12.0-16.0); MEAN CELL VOLUME 91.3 fL CALC (80.0-100.0); MEAN CORPUSCULAR HGB 29.4 pG CALC (26.0-32.0); MEAN CORPUSCULAR HGB CONC 32.2 g/dL CAL (32.0-36.0); RED BLOOD COUNT 2.89 mill/uL (4.20-5.60); RED CELL DISTRI WIDTH 17.7 % (11.5-15.5)
[2021-04-29 05:58] LABS: CREATININE 2.1 mg/dL (0.5-1.0); MAGNESIUM 1.7 mg/dL (1.6-2.3)
[2021-04-29 06:01] LABS: POTASSIUM 3.9 mmol/l (3.5-5.1)
--- NOTE | 2021-04-29 07:03 | NUR ---
REPORT FROM TATUM MOORE. ASSUMED PT CARE.
--- NOTE | 2021-04-29 10:33 | NUR ---
S- Pt without complaints, stated she had been down for a test this am. 0- pt resting in bed [address]. She performed AROM ex to BLEs in supine 2 x 10 reps including heelslides, hip abd/add, hip IR/ER, and SAQ. Bridging x 10 reps with proper breathing practiced. Pt rolled adamaris to side with mod indep using bed rail, SBA for supine to sit, mod assist to return to supine. Gait with RW 2x 30' with CGA. Gait demonstrated small steps with flexed posture. Verbal and physical cues required for correct execution of activity. BP 164/72, HR 76 to 86, 02 sats 100% to 88% initally after walking with return to 97% with short rest and deep breathing. Pt instructed to do ankle pumps and leg ex while in bed and encouraged to be OOB in chair. Time spent with pt 45 min. A- Pt with decreased strength but with decreased assist required today. [facility] home with home health. P- will follow per POC.
--- NOTE | 2021-04-29 11:08 | NUR ---
PHYSICIAN AT BESIDE.
--- NOTE | 2021-04-29 11:09 | NUR ---
PHYSICIAN AT BEDSIDE.
--- NOTE | 2021-04-29 14:08 | NUR ---
TRANSFUSION OF PRBC STARTED AT THIS TIME. INITIATED BY TIFFANIE MOORE. PT TOLERATING WELL.
--- NOTE | 2021-04-29 14:18 | NUR ---
RT AT BEDSIDE FOR EKG.
--- NOTE | 2021-04-29 14:23 | NUR ---
PT TOLERATING PRBC TRANSFUSION AT THIS TIME. VSS. PT DENIES ANY CURRENT WANTS OR NEEDS. CALL LIGHT WITHIN REACH. WILL CONTINUE TO MONITOR.
--- NOTE | 2021-04-29 14:59 | NUR ---
S: JOSÉ MIGUEL GONZALEZ is a 75 F who presents with pneumonia. She has a history of arthritis, cancer, chemotherapy, hypertension, kidney disease, and radiation. All medications in patient's chart were reviewed. O: VS: BP 145/67 mmHg, P 83 bpm, RR 20 bpm, T 98.7 F W 48 kg, HT 64 in, Scr = 2.1 mg/dL, CrCl = 17.3 ml/min A: Blood cultures are pending. P: Patient is on cefepime 1 g IV Q12H. Vancomycin ordered for pharmacy to dose. Start Vancomycin 500 mg IV Q48H. Vancomycin trough is drawn before the 4th dose on 05/05 @ 1800. Vancomycin goal trough is between 15-20 mcg/ml. Pharmacy will follow and or advise on antibiotics use as needed.
--- NOTE | 2021-04-29 15:30 | NUR ---
PT RECEIVED FIRST DOSE OF GASTROGRAFIN WITH APPLE JUICE. TOLERATING BLOOD TRANSFUSION. NOTIFIED PT OF TRANSFER TO ICU FOR CLOSER MONITORING. PT VERBALIZED UNDERSTANDING. MEDICATED FOR ANXIETY UPON REQUEST. O2 @ 4L/M VIA NC. CALL LIGHT WITHIN REACH. WILL CONTINUE TO MONITOR.
--- NOTE | 2021-04-29 16:37 | NUR ---
NOTIFIED RADIOLOGY AT THIS TIME THAT PATIENT RECIEVED LAST DOSE OF GASTROGRAFIN.
--- NOTE | 2021-04-29 17:39 | NUR ---
NOTIFIED PHYSICIAN, PER LAB BLOOD CULTURE CANNOT BE DRAWN UNTIL 4 HOURS AFTER RECEIVING BLOOD TRANSFUSION. AWAITING RESPONSE ON IF OK TO ADMINISTER IV ABT PRIOR TO BLOOD CULTURES.
--- NOTE | 2021-04-29 18:00 | NUR ---
PT TRANSFERED VIA BED TO CT AND THEN BED 5 ICU FOR OBSERVATION. REPORT GIVEN TO EPI MOORE.
--- NOTE | 2021-04-29 18:01 | NUR ---
PER REGINALDO WILLINGHAM TO GIVE IV ABT. NOTIFIED ICU STAFF.
--- NOTE | 2021-04-29 19:00 | NUR ---
PATIENT RESTING IN BED AT THIS TIME. PATIENT DEINES ANY PAIN RN ASSESSEMENT DONE SEE INTERVENTIONS. LUNG FIELD ARE CLEAR IN UPPER FIELD AND DIMINISHED IN LOWER VENTURA. PATIENT HAS HAYES AND IT IS DRAINING CLEAR YELLOW URINE AT THIS TIME. PATIENT HAS ACTIVE BOWEL SOUNDS TELEPHONE INFORMATION CLERK SHOWING PATIENT IN S/R AT A HEART RATE OF 84. PATIENT WILL CONTINUE TO BE MONIOTORED AT THIS TIME.
--- NOTE | 2021-04-29 21:00 | NUR ---
PATIENT COMPLAINING OF PAIN IN BACK AT THIS TIME AND REQUESTING PAIN MEDICATION. PATIENT GIVEN ULTRAM 50MG PO AT THIS TIME FOR A STATED PAIN LEVEL OF 4 OUT OF THE PAIN SCALE OF 0-10. PATIENT ALSO GIVEN 3MG OF PO MELANTONIN FOR SLEEP AT THIS TIME. SIDERAILS ARE UP CALL LIGHT WITHIN REACH WILL CONTINUE TO MONITOR.
--- NOTE | 2021-04-29 22:00 | NUR ---
TRANSITION PROGRAM MANAGER AT THIS TIME IS READING; SINUS TACH HR OF 100. PATIENT REMAINS ON 4L OF 02 NASAL CANNULA AT THIS TIME AND SPO2 IS 100%. SIDERAILS ARE UP CALL LIGHT WITHIN REACH WILL CONTINUE TO MONITOR.
--- NOTE | 2021-04-29 22:32 | NUR ---
PATIENT STATES AT THIS TIME HER PAIN LEVEL IS A 1-2 AND FEELS THE ULTRAM THAT WAS GIVEN HAS HELPED. PATIENT WILL CONTINUE TO BE MONITORED.
[2021-04-30] VITALS (16 sets, daily range): BP systolic 133–166; BP diastolic 55–86
--- NOTE | 2021-04-30 | NUR ---
PATIENT RESTING IN BED WITH EYES CLOSED, RESPIRATIONS EASY AND UNLABORED AT THIS TIME. VITAL SIGNS TAKEN SEE INTERVENTIONS. SACK KEEPER READS: S/R AND HEART RATE OF 90 AT THIS TIME. PATIENT REMAINS ON 4 LITERS OF O2. SIDERAILS ARE UP CALL LIGHT IS WITHIN REACH. WILL CONTINUE TO MONITOR.
--- NOTE | 2021-04-30 02:00 | NUR ---
PATIENT RESTING WITH EYES CLOSED RESPIRATIONS EASY AND UNLABORED AND SPO2 ON 4 LITER RESULTING AT 97%. FOUNDRY PROCESS ENGINEER READING HEART RATE AT 76 AND IN SINUS RHYTHM. SIDERAILS REMAIN UP CALL LIGHT WITHIN REACH.
--- NOTE | 2021-04-30 04:08 | NUR ---
PATIENT REMAINS IN BED WITH EYES CLOSED AND RESPIRATIONS EASY AND UNLABORED AT THIS TIME. HAYES CATH REMAINS IN PLACE AND DRAINING YELLOW URINE AT THIS TIME. [address] AT 4L AND SPO2 IS 97%. SIDERAILS ARE UP CALL LIGHT WIHTIN REACH WILL CONTINUE TO MONITOR.
--- NOTE | 2021-04-30 05:45 | NUR ---
PATIENTS LEFT CHEST PORT FLUSHED WITH HEPARIN PER PROTOCOL. PORT RETURNS BLOOD WITHOUT DIFFICULTY.
[2021-04-30 05:56] LABS: HEMOGLOBIN 9.9 g/dl (12.0-16.0); MEAN CELL VOLUME 89.3 fL CALC (80.0-100.0); MEAN CORPUSCULAR HGB 29.5 pG CALC (26.0-32.0); RED BLOOD COUNT 3.36 mill/uL (4.20-5.60); RED CELL DISTRI WIDTH 17.7 % (11.5-15.5)
--- NOTE | 2021-04-30 06:10 | NUR ---
PATIENT LAYING IN BED WITH EYES CLOSED AT THIS TIME. RESPIRATIONS ARE EASY AND UNLABORED. SIDERAILS ARE UP CALL LIGHT IS WITHIN REACH. WILL CONTINUE TO MONITOR.
[2021-04-30 06:19] LABS: CREATININE 2.1 mg/dL (0.5-1.0); MAGNESIUM 1.6 mg/dL (1.6-2.3); POTASSIUM 3.9 mmol/l (3.5-5.1)
--- NOTE | 2021-04-30 07:37 | NUR ---
REPORT RECEIVED FROM PRESS HAND. PT AWAKE, ALERT/ORIENTED X3, NO COMPLAINTS, VITAL SIGNS STABLE. WILL CONTINUE TO MONITER.
--- NOTE | 2021-04-30 08:27 | NUR ---
JAMEEL ORDERED PER DR. ANDRADE FOR PT. XRAY NOTIFIED.
--- NOTE | 2021-04-30 09:25 | NUR ---
PT ALERT/ORIENTED X3, TALKING ON PHONE TO FAMILY. WILL CONTINUE TO MONITER
--- NOTE | 2021-04-30 10:52 | NUR ---
PT ASSESSMENT OBTAINED, NO CHANGE AT THIS TIME. PT RESSTING QUIETLY IN BED, NO COMPLAINTS.
--- NOTE | 2021-04-30 14:08 | NUR ---
PT UP WALKING WITH PT, WITH SLOW AND STEADY GAIT. WITH WALKER. WHILE PT WAS UP, CHANGED HER LINEN, AND GAVE HER PARTIAL BATH WITH PAD AND UNDERWEAR. EMPTIED 400 CC OF DARK TEX URINE OUT OF HAYES
--- NOTE | 2021-04-30 14:29 | NUR ---
New order for PT rec'd after transfer to ICU. Spoke with Dr. Lynne and PT Gabino Mott, no need for new eval and continued PT per MD and PT. S- She was without conplaints voice except feeling week. 0- Pt resting in bed, nursing reported her just getting pain meds for her back. AROM ex performed to BLEs in supine 2 x 10 reps of heelslides, hip abd/add, SAQ and DF. Bed mobility with min/mod assist, mod assist for supine to and from sitting. Sitting balance static was good. Gait with RW 2 x 30' with CGA and 02 tank management. Sit to and from standing with CGA. Pt required verbal and physical cues for correct execution of ex and safety awareness. BP 150/70 to 172/80, HR 89-100, 02 sats 95 to 98%. Time spent with pt 40 min. A- Pt [facility] ECF or home with home health (lives with spouse and caregiver) P- Pt encouraged to be OOB in chair for meals. Will follow.
--- NOTE | 2021-04-30 15:24 | NUR ---
PT RESTING QUIETLY ON STRETCHER. TALKING ON PHONE, NO DISTRESS NOTED. VITAL SIGNS STABLE.
--- NOTE | 2021-04-30 20:00 | NUR ---
PATIENT ASSEMENT COMPLETED AT THIS TIME. ALERTS AND ORIENTED X3. NO CURRENT COMPLAINTS OF PAIN. PT CLEANED UP AT THIS TIME, BOWEL MOVEMENT TIMES X1, 300 ML EMPTIED OUT OF FOLWY.
--- NOTE | 2021-04-30 22:00 | NUR ---
PATIENT REQUESTING TO BRUSH TEETH AT THIS TIME, TOOTHBRUSH AND TOOTHPASTE PROVIDED. PT SET UP.
[2021-05-01] VITALS (9 sets, daily range): BP systolic 132–154; BP diastolic 59–69
--- NOTE | 2021-05-01 | NUR ---
PT SLEEPING SOUNDLY, AWOKEN BY WRITTER, DENIES ANY CURRENT NEEDS AT THIS TIME. CALL LIGHT AND BEDSIDE TABLE WITHIN REACH.
--- NOTE | 2021-05-01 01:17 | NUR ---
RHYTHYM CHANGE NOTED BY Michael HINKLE RN. Jason [employer] SUPERINTENDENT CURRENTLY ON UNTI, STAT EKG ORDERED, RESULTS SENT TO Yves LIVINGSTON APRN BY Michael HINKLE RN.
--- NOTE | 2021-05-01 02:00 | NUR ---
PT CLEANED UP AT THIS TIME BY CNAS, NO COMPLAINTS VOICED AT THIS TIME. CALL LIGHT AND BEDSIDE TABLE WITHIN REACH.
--- NOTE | 2021-05-01 05:53 | NUR ---
ANTIBIOTIC HUNG, LAB COLLECTED BY WRITTER VIA PORT, AND FLUSHED.
[2021-05-01 06:25] LABS: HEMATOCRIT 30.4 % (37.0-47.0); MEAN CELL VOLUME 89.1 fL CALC (80.0-100.0); MEAN CORPUSCULAR HGB 29.3 pG CALC (26.0-32.0); MEAN CORPUSCULAR HGB CONC 32.9 g/dL CAL (32.0-36.0); NEUT# 2.49 thou/uL (2.00-7.15); RED BLOOD COUNT 3.41 mill/uL (4.20-5.60); RED CELL DISTRI WIDTH 17.2 % (11.5-15.5)
[2021-05-01 06:55] LABS: CREATININE 2.2 mg/dL (0.5-1.0); POTASSIUM 3.9 mmol/l (3.5-5.1)
[2021-05-01 06:57] LABS: ALBUMIN 2.5 g/dL (3.2-5.0); BILIRUBIN, TOTAL 1.1 mg/dL (0.0-1.4); TOTAL PROTEIN 5.3 g/dL (6.3-8.2)
--- NOTE | 2021-05-01 08:00 | NUR ---
Patient is resting in bed with no new complaints. Patient stated that she feels some discomfort in her abdomenial area but tolerable.
--- NOTE | 2021-05-01 11:57 | NUR ---
S- pt c/o buttocks disconfort with sitting. 0- contacted nursing prior to treatment. She was resting in supine. LE ex performed 2 x 10 reps including heelslide, hip abd/add, SAQ, ankle DF/PF with heels guarded and physical cues given. Pt bed mobility was modified indep using bed rails and verbal cues required. Pt was able to sit using bed rail without physical assist today. Transfer to chair with CGA. Gait x 100 with RW no [address] (per nursing request). Gait was slow but without LOB noted. Pt left in chair with legs elevated, callbell and tray in reach. BP 154/71 to 141/70, HR 86, 02 sats 98% on , 91-93 whil ambulating. A- Pt mobility slowly improving. [facility] 14, home with HH. P- continue to follow.
--- NOTE | 2021-05-01 12:40 | NUR ---
Patient worked with PT 6 minute walk test preformed patient's O2 on RA was 92%. Patient stated that she felt SOB during ambulating. Patient placed back on NC 2L after returning to room. Patient stayed in chair for an hour before asking to go back to chair due to discomfort in her bottom from setting.
--- NOTE | 2021-05-01 16:40 | NUR ---
Patient reported feeling nauseated MD notified. Zofran was added. Will continue to monitor. Waiting on [facility]sur transfer.
--- NOTE | 2021-05-01 18:22 | NUR ---
REPORT REC FROM Gita MONTELONGO RN
--- NOTE | 2021-05-01 20:40 | NUR ---
PT RESTING IN BED, NO SIGNS OF DISTRESS NOTED, RESP EVEN AND UNLABORED. PT ALERT AND ORIENTED X3, NO EDEMA, DISCUSSED POC, VERBALIZED UNDERSTANDING. HAYES DRAINING TO GRAVITY, PT MEDICATED FOR PAIN, NOTED REDNESS TO BUTTOCK, SUPPOSITORY INSERTED PT TOLERATED WELL. YAS CARE COMPLETED, PORT TO L SUBCLAVIAN, FLUSHED AT THIS TIME. ASSESSMENT REVIEW COMPLETED, CALL LIGHT IN REACH,CONTINUE TO MONITOR.
--- NOTE | 2021-05-01 22:08 | NUR ---
PT VOMITTING, MEDICATED WITH ZOFRAN, NO SIGNS OF DISTRESS NOTED, RESP EVEN AND UNLABORED. CALL LIGHT IN REACH,CONTINUE TO MONITOR.
[2021-05-02] VITALS: BP 158/68
--- NOTE | 2021-05-02 | NUR ---
PT RESTING IN BED WITH EYES CLOSED, NO SIGNS OF DISTRESS NOTED, RESP EVEN AND UNLABORED. CALL LIGHT IN REACH,CONTINUE TO MONITOR.
[2021-05-02 04:00] VITALS: BP 134/52
--- NOTE | 2021-05-02 05:00 | NUR ---
PT CLEANED UP FROM HAVING A BM, NO SIGNS OF DISTRESS NOTED, RESP EVEN AND UNLABORED. PT MEDICATED FOR PAIN AND NAUSEA, CALL LIGHT IN REACH,CONTINUE TO MONITOR.
[2021-05-02 06:01] LABS: HEMATOCRIT 30.3 % (37.0-47.0); MEAN CELL VOLUME 89.4 fL CALC (80.0-100.0); MEAN CORPUSCULAR HGB 29.5 pG CALC (26.0-32.0); RED BLOOD COUNT 3.39 mill/uL (4.20-5.60); RED CELL DISTRI WIDTH 16.9 % (11.5-15.5)
[2021-05-02 06:22] LABS: CREATININE 2.4 mg/dL (0.5-1.0); POTASSIUM 3.6 mmol/l (3.5-5.1)
[2021-05-02 06:43] LABS: IMMATURE GRANULOCYTES 9.3 % (0.0-5.0); NEUT# 2.16 thou/uL (2.00-7.15)
--- NOTE | 2021-05-02 07:00 | NUR ---
SHIFT CHANGE REPORT, PT SITTING UP IN BED AWAKE ALERT AND ORIENTED, C/O DISCOMFORT TO RECTAL AREA, TELE MONITOR IN PLACE, CALL VAZQUEZ IN REACH AND BED LOCKED IN LOWEST POSITION.
[2021-05-02 08:59] VITALS: BP 122/66
[2021-05-02 10:48] VITALS: BP 124/52
[2021-05-02] MEDS ORDERED: VIBRAMYCIN100 M2 PO (12:59)
[2021-05-02] MEDS ORDERED: DECADRON4 MG PO (13:00)
[2021-05-02] MEDS ORDERED: ALPRAZOLAM0.25 MG PO (13:03)
[2021-05-02] MEDS ORDERED: ANUCORT-HC25 M1 PR (13:26)
--- NOTE | 2021-05-02 14:06 | NUR ---
HAYES CATHETER REMOVED @ 1355, WILL MONITOR FOR SPONTANEOUS URINATION WITHOUT DIFFUCULTY
[2021-05-02 15:22] VITALS: BP 140/63
[2021-05-02 15:24] VITALS: BP 140/63
--- NOTE | 2021-05-02 16:30 | NUR ---
PT URINATED WITHOUT DIFFICULTY AFTER REMOVAL OF HAYES CATHETER.
--- NOTE | 2021-05-02 16:45 | NUR ---
Discharge instructions given. Patient verbalizes understanding of same. Discharged in stable condition via Wheelchair to Home with spouse. All belongings sent with pt.
[2021-05-08] MEDS ORDERED: TRAMADOL HYDROC50 M1 PO (13:50)
== END 2021-05-02 16:48 | DRG 393 ==
LOC: ED 09:32 → ED-I 12:16 → ED 12:33 → ED-I 12:34 → MS2 12:34 → ICU 04-29 18:01 → MS2 05-01 18:37
PROVIDERS: Family Medicine; Nurse Practitioner; ADMIT Hospitalist; ATTEND Internal Medicine
PROC: 30233R1 Transfusion of Nonautologous Platelets into Peripheral Vein, Percutaneous Approach (ICD-10-PCS; principal; 2021-04-27)
PROC: 30233R1 Transfusion of Nonautologous Platelets into Peripheral Vein, Percutaneous Approach (ICD-10-PCS; 2021-04-27)
PROC: 30233N1 Transfusion of Nonautologous Red Blood Cells into Peripheral Vein, Percutaneous Approach (ICD-10-PCS; 2021-04-27)
PROC: 0DBQ8ZX Excision of Anus, Via Natural or Artificial Opening Endoscopic, Diagnostic (ICD-10-PCS; 2021-04-27)
PROC: 30233N1 Transfusion of Nonautologous Red Blood Cells into Peripheral Vein, Percutaneous Approach (ICD-10-PCS; 2021-04-29)
DX: K62.89 Other specified diseases of anus and rectum (principal); J18.9 Pneumonia, unspecified organism; E87.1 Hypo-osmolality and hyponatremia; N18.4 Chronic kidney disease, stage 4 (severe); N17.9 Acute kidney failure, unspecified; D62 Acute posthemorrhagic anemia; K56.7 Ileus, unspecified; K62.5 Hemorrhage of anus and rectum; R09.02 Hypoxemia; I48.91 Unspecified atrial fibrillation; D69.6 Thrombocytopenia, unspecified; I12.9 Hypertensive chronic kidney disease with stage 1 through stage 4 chronic kidney disease, or unspecified chronic kidney disease; E78.5 Hyperlipidemia, unspecified; Z85.048 Personal history of other malignant neoplasm of rectum, rectosigmoid junction, and anus; Z92.21 Personal history of antineoplastic chemotherapy; Z92.3 Personal history of irradiation; Z20.822 Contact with and (suspected) exposure to COVID-19
CPT/HCPCS: A9540; G0378; J0131; J0692; P9016; P9034